=== PATIENT | female | born 1940 | race African-American/Black ===

== ENCOUNTER → 2020-11-03 | Outpatient (CLI) ==
[~2020-11-03] MED LIST: ACET-2267 PO; AMLO-251 PO; ATOR40TA70 PO; DOCU-143 PO; FAMO20TA3 PO; INSU100I23 SQ; METF-399 PO; METO-333 PO; MOM10U PO; OMEP40CA27 PO; ONDA4TAB11 PO; SERT-413 PO; TRAM50TA3 PO
[2020-11-03 22:59] LABS: CLARITY,URINE SL CLOUDY; COLOR,URINE YELLOW; GLUCOSE, URINE (UA) NEGATIVE (NEGATIVE); KETONES,URINE TRACE (NEGATIVE); LEUKOCYTE ESTERASE ,URINE 1+ (NEGATIVE); NITRITE,URINE NEGATIVE (NEGATIVE); PH,URINE 5.5 (5-9); PROTEIN,URINE 1+ (NEGATIVE)
[2020-11-03 23:10] LABS: BACTERIA,URINE LARGE /HPF; BILIRUBIN,URINE 1+ (NEGATIVE)
== END ==
LOC: EDBD → LABNPT 22:50
PROVIDERS: ATTEND Nurse Practitioner Family
DX: R33.9 Retention of urine, unspecified (principal)
CPT/HCPCS: 81000; 87088

== ENCOUNTER 2020-11-06 19:29 | Inpatient (IN) | payer MEDICARE ==
[~2020-11-06] VITALS: Ht 160 cm; Wt 81.5 kg
--- NOTE | 2020-11-06 19:44 | ED General ---
General Chief Complaint: General Problems/Pain Stated Complaint: PE Source of Information: Caregiver, Mcc Records History of Present Illness Date Seen by Provider: Nov 06, 2020 Time Seen by Provider: 19:44 Initial Comments This is a 80-year-old female who [facility] for concerns of pulmonary embolism. She had outpatient orders for CT abdomen/pelvis which showed concerning symptoms for possible pulmonary embolism. She was brought back over from the [facility] for a CTA of her chest which revealed PE. Patient is nonverbal at this time and unable to obtain HPI. Called [facility] and RN states that patient has been having decreased appetite, nausea and vomiting. Allergies and Home Medications Allergies Coded Allergies: No Allergy Information Available (Unverified , 11/06/20) Home Medications Acetaminophen 500 Mg Tablet, 500 MG PO Q6H PRN for PAIN-MILD (1-4), (Reported) Last Action: Held Amlodipine Besylate 10 Mg Tablet, 10 MG PO DAILY, (Reported) HOLD IF BP LESS THAN 100/60 OR HR LESS THEN 60 Last Action: Continued Atorvastatin Calcium 40 Mg Tablet, 40 MG PO HS, (Reported) Last Action: Continued Docusate Sodium 100 Mg Capsule, 100 MG PO BID, (Reported) Last Action: Continued Famotidine 20 Mg Tablet, 20 MG PO HS, (Reported) Last Action: Continued Insulin Lispro 100 Unit/1 Ml Insuln.pen, UNIT SQ AC, (Reported) 0-139= CALL PHYSICIAN 140-175=1 UNIT 176-200=2 UNITS 201-250=3 UNITS 251- 299=4 UNITS 300-400=7 UNITS CALL PHYSICIAN IF OVER 400 Last Action: Reviewed Magnesium Hydroxide 2,400 Mg/10 Ml Oral.susp, 30 ML PO DAILY PRN for CONSTIPATION-7TH LINE, (Reported) GIVE IF NO BM IN 48 HOURS Last Action: Converted Metformin HCl 1,000 Mg Tablet, 1,000 MG PO BID, (Reported) Last Action: Held Metoprolol Tartrate 25 Mg Tablet, 25 MG PO BID, (Reported) HOLD IF BP LESS THAN 100/60 OR HR LESS THAN 60 Last Action: Continued Omeprazole 40 Mg Capsule.dr, 40 MG PO DAILY, (Reported) Last Action: Converted Ondansetron 4 Mg Tab.rapdis, 4 MG PO Q4H PRN for CONSTIPATION-1ST LINE, (Reported) Last Action: Held Sertraline HCl 50 Mg Tablet, 50 MG PO DAILY, (Reported) Last Action: Continued Tramadol HCl 50 Mg Tablet, 50 MG PO Q6H PRN for PAIN-MODERATE (5-7), (Reported) Last Action: Continued Patient Home Medication List Home Medication List Reviewed: Yes Review of Systems Review of Systems Constitutional: see HPI EENTM: see HPI Respiratory: see HPI Cardiovascular: see HPI Gastrointestinal: no symptoms reported Genitourinary: see HPI Musculoskeletal: see HPI Skin: see HPI Psychiatric/Neurological: See HPI Hematologic/Lymphatic: See HPI Immunological/Allergic: see HPI Physical Exam Vital Signs Vital Signs - First Documented 11/06/20 19:30 Pulse 90 Resp 16 B/P (MAP) 143/101 (115) O2 Delivery Room Air Capillary Refill : Height, Weight, BMI Height: '" Weight: lbs. oz. kg; BMI Method: General Appearance: No Apparent Distress, WD/WN Eyes: Bilateral Eye Normal Inspection, Bilateral Eye EOMI HEENT: PERRL/EOMI, Normal ENT Inspection Neck: Full Range of Motion, Normal Inspection Respiratory: Normal Breath Sounds, No Accessory Muscle Use, No Respiratory Distress, Rales (bilateral bases) Cardiovascular: Regular Rate, Rhythm, No Edema, No Gallop, Normal Peripheral Pulses Gastrointestinal: Normal Bowel Sounds, Non Tender, Soft Genital/Rectal: Other (delgado catheter ) Extremity: Normal Inspection, Non Tender Neurologic/Psychiatric: Alert, Oriented x3, No Motor/Sensory Deficits, Other (unresponsive ) Skin: Normal Color, Warm/Dry Progress/Results/Core Measures Suspected Sepsis SIRS Temperature: Pulse: Respiratory Rate: Laboratory Tests 11/06/20 19:45: White Blood Count 10.3 Blood Pressure / Mean: Laboratory Tests 11/06/20 19:45: Creatinine 1.22, INR Comment 1.7H, Platelet Count 378, Total Bilirubin 0.5 Results/Orders Lab Results Laboratory Tests Test 11/06/20 19:45 11/06/20 20:09 Range/Units White Blood Count 10.3 4.3-11.0 10^3/uL Red Blood Count 4.14 3.80-5.11 10^6/uL Hemoglobin 12.5 11.5-16.0 g/dL Hematocrit 38 35-52 % Mean Corpuscular Volume 93 80-99 fL Mean Corpuscular Hemoglobin 30 25-34 pg Mean Corpuscular Hemoglobin Concent 33 32-36 g/dL Red Cell Distribution Width 14.6 H 10.0-14.5 % Platelet Count 378 130-400 10^3/uL Mean Platelet Volume 8.9 L 9.0-12.2 fL Immature Granulocyte % (Auto) 1 % Neutrophils (%) (Auto) 77 H 42-75 % Lymphocytes (%) (Auto) 13 12-44 % Monocytes (%) (Auto) 8 0-12 % Eosinophils (%) (Auto) 0 0-10 % Basophils (%) (Auto) 1 0-10 % Neutrophils # (Auto) 8.0 H 1.8-7.8 10^3/uL Lymphocytes # (Auto) 1.4 1.0-4.0 10^3/uL Monocytes # (Auto) 0.8 0.0-1.0 10^3/uL Eosinophils # (Auto) 0.0 0.0-0.3 10^3/uL Basophils # (Auto) 0.1 0.0-0.1 10^3/uL Immature Granulocyte # (Auto) 0.1 0.0-0.1 10^3/uL Prothrombin Time 20.2 H 12.2-14.7 SEC INR Comment 1.7 H 0.8-1.4 Activated Partial Thromboplast Time 41 H 24-35 SEC Sodium Level 134 L 135-145 MMOL/L Potassium Level 4.1 3.6-5.0 MMOL/L Chloride Level 100 98-107 MMOL/L Carbon Dioxide Level 20 L 21-32 MMOL/L Anion Gap 14 5-14 MMOL/L Blood Urea Nitrogen 27 H 7-18 MG/DL Creatinine 1.22 0.60-1.30 MG/DL Estimat Glomerular Filtration Rate 52 BUN/Creatinine Ratio 22 Glucose Level 181 H 70-105 MG/DL Calcium Level 10.1 8.5-10.1 MG/DL Corrected Calcium 10.7 H 8.5-10.1 MG/DL Total Bilirubin 0.5 0.1-1.0 MG/DL Aspartate Amino Transf (AST/SGOT) 22 5-34 U/L Alanine Aminotransferase (ALT/SGPT) 16 0-55 U/L Alkaline Phosphatase 72 40-136 U/L Troponin I 0.033 H <0.028 NG/ML Total Protein 9.0 H 6.4-8.2 GM/DL Albumin 3.3 3.2-4.5 GM/DL Urine Color YELLOW Urine Clarity CLEAR Urine pH 5.5 5-9 Urine Specific [place] 1.015 L 1.016-1.022 Urine Protein 1+ H NEGATIVE Urine Glucose (UA) NEGATIVE NEGATIVE Urine Ketones NEGATIVE NEGATIVE Urine Nitrite NEGATIVE NEGATIVE Urine Bilirubin NEGATIVE NEGATIVE Urine Urobilinogen 0.2 < = 1.0 MG/DL Urine Leukocyte Esterase 1+ H NEGATIVE Urine RBC (Auto) 2+ H NEGATIVE Urine RBC 5-10 H /HPF Urine WBC 10-25 H /HPF Urine Squamous Epithelial Cells 2-5 /HPF Urine Crystals NONE /LPF Urine Bacteria LARGE H /HPF Urine Casts PRESENT /LPF Urine Hyaline Casts 0-2 H /LPF Urine Mucus SMALL H /LPF Urine Yeast MODERATE H /HPF Urine Culture Indicated YES Micro Results Microbiology 11/06/20 Urine Culture - Preliminary, Resulted Gram Negative Sabas My Orders Orders - VIVIAN MURPHY SPECIMEN COLLECTOR Cbc With Automated Diff (11/06/20 19:42) Comprehensive Metabolic Panel (11/06/20 19:42) Protime With Inr (11/06/20 19:42) Ua Culture If Indicated (11/06/20 19:42) Ns Iv 500 Ml (Sodium Chloride 0.9%) (11/06/20 19:45) Ondansetron Injection (Zofran Injectio (11/06/20 19:45) Partial Thromboplastin Time (11/06/20 19:45) Ekg Tracing (11/06/20 20:01) Monitor-Rhythm Ecg Trace Only (11/06/20 20:01) Ed Iv/Invasive Line Start (11/06/20 20:01) Troponin I (11/06/20 20:01) Medications Given in ED Vital Signs/I&O 11/06/20 19:30 Pulse 90 Resp 16 B/P (MAP) 143/101 (115) O2 Delivery Room Air 11/07/20 00:00 Intake Total 500 ml Balance 500 ml Capillary Refill : Progress Note : Progress Note Upon arrival patient appears to not be able to answer questions and she is actively vomiting. Given Zofran 4mg IVP. CT ang chest reviewed which does reveal PE. Orders placed to initiate full heparin therapy. Given NS 500ml bolus as she received two doses of IV contrast today. Reviewed case with Dr. Hannah, accepted patient admission to medical unit. After nausea/vomiting under control she was able to answer simple questions. Oriented to person only. Plan: Admit to medical unit for pulmonary embolism. -Full heparin therapy -NS 100ml/hr continuously -Zofran 4mg IVP q6 hours PRN -Phenergan 25mg IVP q6 hours PRN -Fentanyl 50mcg IVP q2 hours PRN pain -Pantoprazole 40mg IVP q24 hours -Tylenol 650mg PO q6 hours PRN fever/pain DNR ECG Initial ECG Impression Date: Nov 06, 2020 Initial ECG Impression Time: 20:12 Initial ECG Rate: 78 Initial ECG Rhythm: Normal Sinus Initial ECG Intervals: Normal Initial ECG Impression: Nonspecific Changes Diagnostic Imaging Diagonstic Imaging: CT Plain Films/CT/US/NM/MRI: chest Comments [facility], [place] NAME: TABITHA RUTH [employer] REC#: [id number] PT STATUS: REG CLI : 1940 PHYSICIAN: CHAPIS SNELL ADMIT DATE: 11/06/20/RAD Signed Date of Exam:11/06/20 CT ANGIO CHEST W PROCEDURE: CT angiography of the chest with contrast. TECHNIQUE: Multiple contiguous axial images were obtained through the chest after uneventful bolus administration of intravenous contrast. 3D reconstructed CTA MIP acquisitions were also performed. Auto Exposure Controls were utilized during the CT exam to meet ALARA standards for radiation dose reduction. INDICATION: 80-year-old female with shortness of breath, left lower lobe infiltrate on CT abdomen and pelvis. COMPARISONS: CT abdomen and pelvis 11/06/2020 FINDINGS: There is no axillary adenopathy. There is also no hilar or mediastinal adenopathy. Cardiac contour is normal. The thoracic aortic contour is also normal with no evidence of aneurysm or dissection. The pulmonary outflow tract is prominent. The right and left pulmonary arteries are patent. There is thrombus seen extending into the right lower lobe pulmonary artery. Nonocclusive thrombus is also seen in the left lower lobe pulmonary artery. Lungs show COPD. There is a right lower lobe consolidation with a sliver right effusion. IMPRESSION: 1. Findings are consistent with pulmonary embolism with intraluminal thrombus seen in the right lower lobe pulmonary artery and nonocclusive thrombus in the left lower lobe pulmonary artery. 2. Prominent main pulmonary arteries may be a sequela of pulmonary arterial hypertension. 3. Right lower lobe consolidation. 4. Prominent coronary calcifications noted. 5. Additional nonemergent findings as described above. Message left on cell phone of Kizzy Isbell APRN at 7:43 PM 11/06/2020/cb Dr. Shrestha contacted Kizzy Isbell APRN, at the time of dictation. Dictated by: Dictated on workstation # [id number] Dict: 11/06/20 1916 Trans: 11/07/205 [facility] [id number] Interpreted by: BRIANA SHRESTHA MD Electronically signed by: BRIANA SHRESTHA MD 11/07/20 0445 Reviewed: Reviewed by Tn Diagonstic Imaging: CT Comments [facility], [place] NAME: TABITHA RUTH [employer] REC#: [id number] PT STATUS: REG CLI : 1940 PHYSICIAN: KIZZY ISBELL APRN ADMIT DATE: 11/06/20/RAD Signed Date of Exam:11/06/20 CT ABDOMEN/PELVIS W PROCEDURE: CT abdomen and pelvis with contrast. TECHNIQUE: Multiple contiguous axial images were obtained through the abdomen and pelvis after administration of intravenous contrast. Auto Exposure Controls were utilized during the CT exam to meet ALARA standards for radiation dose reduction. All CT scans use one or more of the following dose optimizing techniques: automated exposure control, MA and/or KvP adjustment based on patient size and exam type or iterative reconstruction. INDICATION: Abdominal pain. Nausea. Vomiting. Weight loss. COMPARISON: None FINDINGS: Included portions of the lung bases show small right basal effusion with focal and patchy airspace densities within the right lower lobe. Overall appearance may be on the basis of pneumonia. Pulmonary infarct may have a similar appearance. CT ABDOMEN: Normal appendix cannot be adequately identified, but there is no pericecal inflammation. Small bowel loops are nondistended. Benign cyst is identified involving the inferior pole of the left kidney. Several other subcentimeter hypoenhancing spherical foci are also noted and may be on the basis of small cysts as well, but are too small to adequately characterize based on this exam. No suspicious enhancing renal lesions are seen. The adrenal glands, spleen, pancreas, and liver have normal CT appearance. There is no loculated fluid collection, free fluid or free air within the abdomen. No abnormal mesenteric or retroperitoneal adenopathy is seen. Osseous structures show no acute abnormalities. CT PELVIS: Delgado catheter is present within the urinary bladder. Urinary bladder is decompressed. There is no loculated fluid collection, free fluid or free air within the pelvis. No abnormal adenopathy is seen. Osseous structures show no acute abnormalities. IMPRESSION: 1. No acute abnormalities are seen within the abdomen or pelvis. 2. Left benign renal cysts and additional smaller hypoenhancing renal foci, which again may be on the basis of renal cysts, but are too small to adequately characterize based on this exam. 3. Small right basilar effusion with probable infiltrate/pneumonia in the right lower lobe. Pulmonary infarct may have a similar appearance. If there is concern for pulmonary emboli, CTA of the chest is recommended. Report given to Kizzy Isbell APRN, at 5:06 PM 11/06/2020/tatianna Dictated by: Dictated on workstation # [id number] Dict: 11/06/20 1625 Trans: 11/07/20 0815 [facility] [id number] Interpreted by: CATHERINE QUINTEROS MD Electronically signed by: CATHERINE QUINTEROS MD 11/07/2015 Reviewed: Reviewed by Me Departure Communication (Admissions) Time/Spoke to Admitting Phy: 20:[address] Hannah, accepted patient admission. Impression Primary Impression: Pulmonary embolism Additional Impressions: Nausea & vomiting Poor appetite Disposition: ADMITTED INPATIENT Condition: Stable Admissions Decision to Admit Reason: Admit from ER (General) Decision to Admit/Date: Nov 06, 2020 Time/Decision to Admit Time: 20:15 Departure-Patient Inst. Referrals: KAYLEY KOWALSKI MD (PCP/Family) Primary Care Physician VIVIAN MURPHY SPECIMEN COLLECTOR Nov 06, 2020 19:44
[2020-11-06] MEDS ORDERED: ONDANSETRON 4 MG/2 ML (SDV) Z0FRAN IVP ONE (19:45)
[2020-11-06] MEDS ORDERED: NS IV 500 ML 500 ML IV ONE (19:45)
[2020-11-06 19:52] LABS: BASOPHILS # (AUTO) 0.1 10^3/uL (0.0-0.1); BASOPHILS % (AUTO) 1 % (0-10); EOSINOPHILS % (AUTO) 0 % (0-10); HEMATOCRIT 38 % (35-52); HEMOGLOBIN 12.5 g/dL (11.5-16.0); LYMPHOCYTES # (AUTO) 1.4 10^3/uL (1.0-4.0); LYMPHOCYTES % (AUTO) 13 % (12-44); MEAN CORPUSCULAR HEMOGLOBIN 30 pg (25-34); MEAN CORPUSCULAR HGB CONC 33 g/dL (32-36); MEAN CORPUSCULAR VOLUME 93 fL (80-99); MEAN PLATELET VOLUME 8.9 fL (9.0-12.2); MONOCYTES # (AUTO) 0.8 10^3/uL (0.0-1.0); MONOCYTES % (AUTO) 8 % (0-12); NEUTROPHILS % (AUTO) 77 % (42-75); PLATELET COUNT 378 10^3/uL (130-400); WHITE BLOOD COUNT 10.3 10^3/uL (4.3-11.0)
[2020-11-06] MEDS ORDERED: HEParin DRIP 25000 UNIT/500ML 500 ML IV SCH (20:00)
[2020-11-06] MEDS ORDERED: HEParin 1000 UNIT/ML (10ML VIAL) FOR BOLUS IV SCH ×3 (20:00)
[2020-11-06 20:04] LABS: INR 1.7 (0.8-1.4); PROTHROMBIN TIME PATIENT 20.2 SEC (12.2-14.7)
[2020-11-06 20:11] LABS: ALBUMIN 3.3 GM/DL (3.2-4.5); BILIRUBIN,TOTAL 0.5 MG/DL (0.1-1.0); CALCIUM 10.1 MG/DL (8.5-10.1); CREATININE SERUM 1.22 MG/DL (0.60-1.30); POTASSIUM 4.1 MMOL/L (3.6-5.0)
[2020-11-06] MEDS ORDERED: HEParin DRIP 25000 UNIT/500ML 500 ML IV ONE (20:13)
[2020-11-06 20:19] LABS: BILIRUBIN,URINE NEGATIVE (NEGATIVE); CLARITY,URINE CLEAR; COLOR,URINE YELLOW; GLUCOSE, URINE (UA) NEGATIVE (NEGATIVE); KETONES,URINE NEGATIVE (NEGATIVE); LEUKOCYTE ESTERASE ,URINE 1+ (NEGATIVE); NITRITE,URINE NEGATIVE (NEGATIVE); PH,URINE 5.5 (5-9); PROTEIN,URINE 1+ (NEGATIVE)
[2020-11-06 20:33] LABS: BACTERIA,URINE LARGE /HPF; HYALINE CASTS, URINE 0-2 /LPF
[2020-11-06 20:34] LABS: YEAST,URINE MODERATE /HPF
[2020-11-06 21:15] VITALS: BP 167/72
[2020-11-06] MEDS ORDERED: PROMETHAZINE INJ 25 MG/ML (PHENERGAN) AMP IVP PRN (21:45)
[2020-11-06] MEDS ORDERED: ACETAMINOPHEN 650 MG SUPP (TYLENOL) PR PRN (21:45)
[2020-11-06] MEDS ORDERED: ACETAMINOPHEN 325 MG TABLET PO PRN (21:45)
[2020-11-06] MEDS ORDERED: ONDANSETRON 4 MG/2 ML (SDV) Z0FRAN IV PRN (21:45)
[2020-11-06] MEDS: NS IV 1000 ML 1,000 ML IV SCH (22:05)
[2020-11-06 23:03] VITALS: BP 134/57
[2020-11-06] MEDS ORDERED: RT-ALBUTEROL/IPRATROPIUM 3 ML (DUONEB) VIAL INH PRN (23:30)
[2020-11-06 23:35] VITALS: BP 160/79
[2020-11-07 04:05] VITALS: BP 154/77
[2020-11-07 06:59] LABS: BASOPHILS # (AUTO) 0.1 10^3/uL (0.0-0.1); BASOPHILS % (AUTO) 1 % (0-10); EOSINOPHILS # (AUTO) 0.1 10^3/uL (0.0-0.3); EOSINOPHILS % (AUTO) 1 % (0-10); HEMATOCRIT 35 % (35-52); LYMPHOCYTES # (AUTO) 2.1 10^3/uL (1.0-4.0); LYMPHOCYTES % (AUTO) 21 % (12-44); MEAN CORPUSCULAR HEMOGLOBIN 30 pg (25-34); MEAN CORPUSCULAR HGB CONC 32 g/dL (32-36); MEAN CORPUSCULAR VOLUME 95 fL (80-99); MEAN PLATELET VOLUME 9.2 fL (9.0-12.2); MONOCYTES # (AUTO) 0.9 10^3/uL (0.0-1.0); MONOCYTES % (AUTO) 9 % (0-12); NEUTROPHILS # (AUTO) 6.7 10^3/uL (1.8-7.8); NEUTROPHILS % (AUTO) 68 % (42-75); PLATELET COUNT 375 10^3/uL (130-400); WHITE BLOOD COUNT 9.9 10^3/uL (4.3-11.0)
[2020-11-07 07:21] LABS: POTASSIUM 3.9 MMOL/L (3.6-5.0)
[2020-11-07 07:22] LABS: CALCIUM 9.5 MG/DL (8.5-10.1)
[2020-11-07 07:26] LABS: CREATININE SERUM 1.27 MG/DL (0.60-1.30)
[2020-11-07 08:00] VITALS: BP 152/75
[2020-11-07] MEDS: NS IV 1000 ML 1,000 ML IV SCH ×2 (08:31→18:41)
[2020-11-07] MEDS ORDERED: PANTOPRAZOLE 40 MG (PROTONIX) VIAL IV SCH (09:00)
[2020-11-07] MEDS ORDERED: ATOR40TA70 PO (10:42)
[2020-11-07] MEDS ORDERED: AMLO-251 PO (10:44)
[2020-11-07] MEDS ORDERED: FAMO20TA3 PO (10:44)
[2020-11-07] MEDS ORDERED: OMEP40CA27 PO (10:44)
[2020-11-07] MEDS ORDERED: SERT-413 PO (10:44)
[2020-11-07] MEDS ORDERED: DOCU-143 PO (10:44)
[2020-11-07] MEDS: fentaNYL INJ 100 MCG/2 ML AMP IV PRN ×3 (10:56→18:16)
[2020-11-07] MEDS ORDERED: METO-333 PO (10:57)
[2020-11-07] MEDS ORDERED: INSU100I23 SQ (10:57)
[2020-11-07] MEDS ORDERED: METF-399 PO (10:57)
[2020-11-07] MEDS ORDERED: MOM10U PO (11:04)
[2020-11-07] MEDS ORDERED: ONDA4TAB11 PO (11:04)
[2020-11-07] MEDS ORDERED: TRAM50TA3 PO (11:04)
[2020-11-07] MEDS ORDERED: ACET-2267 PO (11:04)
--- NOTE | 2020-11-07 11:10 | History & Physical-Hospitalist ---
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 She is unable to provide me much history due to her aphasia. I called and spoke with her daughter and her PCP Kizzy Isbell NP. Daughter reports she had a stroke back in September and was lifeflighted to [place] for possible thrombectomy but ultimately did not end up getting that done due to location of the clot. She has since has residual right sided weakness and aphasia since then. RACHNA Isbell then told me that she has been feeling well for a few weeks and has lost about 20lbs. She has not been eating or drinking much and has has nausea and possibly some v omiting. She was treated recently for a UTI with Bactrim for e coli but has continued to not feel well and repeat UA in the ER was consistent with UTI. I did confirm that previous e coli was sensitivie to cephalosporins. Source: family Exam Limitations: other Date Seen 11/07/20 Time Seen by a Provider: 11:03 Attending Physician Sami Hannah MD PCP Lukasz Coughlin MD Referring Physician Date of Admission Nov 06, 2020 at 20:20 Home Medications & Allergies Home Medications Reviewed patient Home Medication Reconciliation performed by pharmacy medication reconciliations health care technician and/or nursing. Patients Allergies have been reviewed. Allergies Allergies Coded Allergies No Allergy Information Available (Unverified11/06/20) Past Cnizhrb-Ymyvqx-Wbxpoz Hx Patient Social History Employed/Student: retired Smoking Status: Never a Smoker Pt feels they are or have been: Unable to obtain Immunizations Up To Date Tetanus Booster (TDap): Unknown Current Status status: No status: No Advance Directives: Yes Advance Directive Location: Copy placed in chart Communicates: Unable To Communicate Primary Language: Icelandic Preferred Spoken Language: Icelandic Is interpretation needed?: No Sensory deficits: Speech impairment Past Medical History Surgeries: Cardiac High Cholesterol, Hypertension Stroke UTI-Chronic Gastroesophageal Reflux, Chronic Constipation, Esophagitis Diabetes, Insulin dep Depression Family Medical History Reviewed Nursing Family Hx No Pertinent Family Hx Review of Systems Constitutional: see HPI Physical Exam Physical Exam Vital Signs Vital Signs - First Documented 11/06/20 11/06/20 11/06/20 11/06/20 19:30 20:46 21:15 23:03 Temp 36.7 Pulse 90 Resp 16 B/P (MAP) 143/101 (115) Pulse Ox 100 O2 Delivery Room Air FiO2 21 Capillary Refill : Less Than 3 Seconds Height, Weight, BMI Height: '" Weight: lbs. oz. kg; 31.83 BMI Method: General Appearance: No Apparent Distress, Chronically ill Neck: Normal Inspection, Supple Respiratory: Lungs Clear, No Accessory Muscle Use, No Respiratory Distress Cardiovascular: Regular Rate, Rhythm, No JVD, Normal Peripheral Pulses Gastrointestinal: Normal Bowel Sounds, Non Tender, Soft Neurologic/Psychiatric: Alert, Oriented x3, Normal Mood/Affect Skin: Normal Color, Warm/Dry Results Results/Procedures Labs Laboratory Tests 11/06/20 19:45 11/07/20 06:51 Patient resulted labs reviewed. Imaging: Reviewed Imaging Report [email or web address] [place] [place] NAME: TABITHA RUTH [email or web address] REC#: [id number] PT STATUS: REG CLI : 1940 PHYSICIAN: CHAPIS SNELL ADMIT DATE: 11/06/20/RAD Signed Date of Exam:11/06/20 CT ANGIO CHEST W PROCEDURE: CT angiography of the chest with contrast. TECHNIQUE: Multiple contiguous axial images were obtained through the chest after uneventful bolus administration of intravenous contrast. 3D reconstructed CTA MIP acquisitions were also performed. Auto Exposure Controls were utilized during the CT exam to meet ALARA standards for radiation dose reduction. INDICATION: 80-year-old female with shortness of breath, left lower lobe infiltrate on CT abdomen and pelvis. COMPARISONS: CT abdomen and pelvis 11/06/2020 FINDINGS: There is no axillary adenopathy. There is also no hilar or mediastinal adenopathy. Cardiac contour is normal. The thoracic aortic contour is also normal with no evidence of aneurysm or dissection. The pulmonary outflow tract is prominent. The right and left pulmonary arteries are patent. There is thrombus seen extending into the right lower lobe pulmonary artery. Nonocclusive thrombus is also seen in the left lower lobe pulmonary artery. Lungs show COPD. There is a right lower lobe consolidation with a sliver right effusion. IMPRESSION: 1. Findings are consistent with pulmonary embolism with intraluminal thrombus seen in the right lower lobe pulmonary artery and nonocclusive thrombus in the left lower lobe pulmonary artery. 2. Prominent main pulmonary arteries may be a sequela of pulmonary arterial hypertension. 3. Right lower lobe consolidation. 4. Prominent coronary calcifications noted. 5. Additional nonemergent findings as described above. Message left on cell phone of Kizzy Isbell APRN at 7:43 PM 11/06/2020/cb Dr. Shrestha contacted Kizzy Isbell APRN, at the time of dictation. Dictated by: Dictated on workstation # [id number] Dict: 11/06/201915 Trans: 11/07/20444 [facility] [id number] Interpreted by: BRIANA SHRESTHA MD Electronically signed by: BRIANA SHRESTHA MD 11/07/205 [facility] [place], [place] NAME: TABITHA RUTH [facility] REC#: [id number] PT STATUS: REG CLI : 1940 PHYSICIAN: KIZZY ISBELL APRN ADMIT DATE: 11/06/20/RAD Signed Date of Exam:11/06/20 CT ABDOMEN/PELVIS W PROCEDURE: CT abdomen and pelvis with contrast. TECHNIQUE: Multiple contiguous axial images were obtained through the abdomen and pelvis after administration of intravenous contrast. Auto Exposure Controls were utilized during the CT exam to meet ALARA standards for radiation dose reduction. All CT scans use one or more of the following dose optimizing techniques: automated exposure control, MA and/or KvP adjustment based on patient size and exam type or iterative reconstruction. INDICATION: Abdominal pain. Nausea. Vomiting. Weight loss. COMPARISON: None FINDINGS: Included portions of the lung bases show small right basal effusion with focal and patchy airspace densities within the right lower lobe. Overall appearance may be on the basis of pneumonia. Pulmonary infarct may have a similar appearance. CT ABDOMEN: Normal appendix cannot be adequately identified, but there is no pericecal inflammation. Small bowel loops are nondistended. Benign cyst is identified involving the inferior pole of the left kidney. Several other subcentimeter hypoenhancing spherical foci are also noted and may be on the basis of small cysts as well, but are too small to adequately characterize based on this exam. No suspicious enhancing renal lesions are seen. The adrenal glands, spleen, pancreas, and liver have normal CT appearance. There is no loculated fluid collection, free fluid or free air within the abdomen. No abnormal mesenteric or retroperitoneal adenopathy is seen. Osseous structures show no acute abnormalities. CT PELVIS: Connor catheter is present within the urinary bladder. Urinary bladder is decompressed. There is no loculated fluid collection, free fluid or free air within the pelvis. No abnormal adenopathy is seen. Osseous structures show no acute abnormalities. IMPRESSION: 1. No acute abnormalities are seen within the abdomen or pelvis. 2. Left benign renal cysts and additional smaller hypoenhancing renal foci, which again may be on the basis of renal cysts, but are too small to adequately characterize based on this exam. 3. Small right basilar effusion with probable infiltrate/pneumonia in the right lower lobe. Pulmonary infarct may have a similar appearance. If there is concern for pulmonary emboli, CTA of the chest is recommended. Report given to Kizzy Isbell APRN, at 5:06 PM 11/06/2020/tatianna Dictated by: Dictated on workstation # [id number] Dict: 11/06/20 1625 Trans: 11/07/20 0815 [facility] [id number] Interpreted by: CATHERINE QUINTEROS MD Electronically signed by: CATHERINE QUINTEROS MD 11/07/20 0815 Assessment/Plan Admission Diagnosis Bilateral PE Admission Status: Inpatient Order (span 2 midnights) Reason for Inpatient Admission: see below Assessment and Plan Bilateral PE Compensating well transition from herpain gtt to Lovenox due to nausea Hopeful can transition to Eliquis if nausea improved soon BP and HR good, satting 100 on RA this morning Recurrent UTI Await C&S Start on Rocephin Expressive Aphasia CVA with residual deficits- right sided PT/OT/Speech Continue home meds IDDMII Fasting blood sugar this AM was 139 SSI HTN BP well controlled DVT ppx; anticoagulation as above Diagnosis/Problems Diagnosis/Problems (1) Essential (primary) hypertension Status: Chronic (2) Obesity Status: Chronic Qualifiers: Obesity type: unspecified obesity type Obesity classification: adult class 1 (BMI 30 - 34.9) Serious obesity comorbidity presence: without serious comorbidity Body mass index: BMI 31.0-31.9 Qualified Codes: E66.9 - Obesity, unspecified; Z68.31 - Body mass index [BMI] 31.0-31.9, adult (3) NSTEMI (non-ST elevated myocardial infarction) Status: Acute (4) Insulin dependent diabetes mellitus Status: Chronic (5) Prophylactic measure Status: Acute (6) UTI (urinary tract infection) Status: Acute Qualifiers: Urinary tract infection type: acute cystitis Hematuria presence: with hematuria Qualified Codes: N30.01 - Acute cystitis with hematuria (7) CVA, old, aphasia Status: Chronic (8) CVA, old, hemiparesis Status: Chronic (9) Pulmonary embolism Status: Acute Qualifiers: Pulmonary embolism type: multiple subsegmental (without acute cor pulmonale) Qualified Codes: I26.94 - Multiple subsegmental pulmonary emboli without acute cor pulmonale (10) Nausea & vomiting Status: Acute Qualifiers: Vomiting Intractability: intractable SANDY BRANDON MD Nov 07, 2020 11:10
[2020-11-07] MEDS ORDERED: cefTRIAXone 1,000 MG in WATER (STERILE) FOR INJECTION 10 ML IV NR (11:15)
[2020-11-07 11:46] VITALS: BP 145/73
[2020-11-07] MEDS: ENOXAPARIN 80 MG/0.8 ML (LOVENOX) SYR SC SCH (12:36)
[2020-11-07] MEDS ORDERED: MILK OF MAGNESIA 400 MG/5 ML 30 ML UDC PO PRN (12:45)
--- NOTE | 2020-11-07 15:07 | Physical Therapy Evaluation ---
PT Evaluation-General Medical Diagnosis Admission Date Nov 06, 2020 at 20:20 Medical Diagnosis: pulmonary embolism Onset Date: Nov 06, 2020 Therapy Diagnosis Therapy Diagnosis: impaired mobility, strength, endurance Precautions Precautions/Isolations: Fall Prevention, Standard Precautions Referral Physician: [place] Reason for Referral: Evaluation/Treatment Medical History Additional Medical History Past Medical History Surgeries: Cardiac High Cholesterol, Hypertension Stroke UTI-Chronic Gastroesophageal Reflux, Chronic Constipation, Esophagitis Diabetes, Insulin dep Depression Reviewed History: Yes Social History Home: [facility] Prior Prior Level of Function SCALE: Activities may be completed with or without assistive devices. 1-Hmgfgfnjxz-cpdntcq completes the activity by him/herself with no assistance from a helper. 5-Set-up or Clean-up Assistance-helper sets up or cleans up; patient completes activity. [place] assists only prior to or following the activity. 4-Supervision or Touching Assistance-helper provides verbal cues and/or touching/steadying and/or contact guard assistance as patient completes activity. Assistance may be provided throughout the activity or intermittently. 3-Partial/Moderate Assistance-helper does LESS THAN HALF the effort. [place] lifts, holds or supports trunk or limbs, but provides less than half the effort. 2-Substantial/Maximal Assistance-helper does MORE THAN HALF the effort. [place] lifts or holds trunk or limbs and provides more than half the effort. 9-Llpfhepdc-ozwyxd does ALL the effort. Patient does none of the effort to complete the activity. Or, the assistance of 2 or more helpers is required for the patient to complete the activity. If activity was not attempted, code reason: 7-Patient Refused. 9-Not Applicable-not attempted and the patient did not perform the activity before the current illness, exacerbation or injury. 10-Not Attempted due to Environmental Limitations-(lack of equipment, weather restraints, etc.). 88-Not Attempted due to Medical Conditions or Safety Concerns. unknown PT Evaluation-Current Subjective Patient in bed pre tx, agrees to PT by nodding her head, she doesn't seem to be able to talk Pt/Family Goals none stated Objective Patient Orientation: Person, Unable to Assess, Non-Verbal/Aphasic ROM/Strength ROM Lower Extremities generally limited due to BLE swelling Strength Lower Extremities unable to assess Transfers Roll Left to Right (QC): 1 Sit to Lying (QC): 1 Lying to Sitting/Side of Bed(Q: 1 Dependent assist of 2 for supine to sit, patient was able to sit for about 5 min before needing to lay back down, dependent of 2 to lay down. Patient leans to the right side when sitting. Patient is dependent for scooting after laying back down. Balance Sitting Static: Poor Sitting Dynamic: Poor Assessment/Needs Patient in bed post tx with nurse call, phone, tray, all needs met. Patient has impaired mobility, strength, endurance. Patient is dependent for all mobility. Rehab Potential: Poor PT Mcfp Goals Commercial Art Instructor Goals PT Mcfp Goals Time Frame: Nov 14, 2020 Roll Left & Right (QC): 2 Sit to Lying (QC): 2 Lying-Sitting on Side/Bed(QC): 2 PT Plan Problem List Problem List: Activity Tolerance, Functional Strength, Safety, Balance, Gait, Transfer, Bed Mobility, ROM Treatment/Plan Treatment Plan: Continue Plan of Care Treatment Plan: Bed Mobility, Education, Functional Activity Araceli, Functional Strength, Safety, Therapeutic Exercise, Transfers Treatment Duration: Nov 14, 2020 Frequency: 6 times per week Estimated Hrs Per Day: .25 hour per day Patient and/or Family Agrees t: Yes Safety Risks/Education Patient Education: Correct Positioning, Safety Issues Teaching Recipient: Patient Teaching Methods: Demonstration, Discussion Response to Teaching: Reinforcement Needed Discharge Recommendations Plan Patient will perform bed mobility and transfer training, balance and endurance training, functional strengthening, and education, to improve functional mobility and independence at home. Therapy Discharge Recommendati: 24 Hour Supervision Time/GCodes Time In: 1442 Time Out: 1454 Total Billed Treatment Time: 12 Total Billed Treatment 1 visit ARNULFO HIDALGO PT Nov 07, 2020 15:07
--- NOTE | 2020-11-07 15:12 | Occupational Therapy Eval ---
OT Evaluation-General/PLF Medical Diagnosis Admission Date Nov 06, 2020 at 20:20 Medical Diagnosis: PE Onset Date: Nov 06, 2020 Therapy Diagnosis Therapy Diagnosis: weakness, decresed ADL status Precautions Precautions/Isolations: Fall Prevention, Standard Precautions Referral Physician: ALEKSANDR Referral Reason: Evaluation/Treatment Medical History Pertinent Medical History: CVA, DM, GERD, HTN Current History ED due to PE on CT scan Social History Home: [facility] ADL-Prior Level of Function SCALE: Activities may be completed with or without assistive devices. 6-Odgnepmcry-bhjkjad completes the activity by him/herself with no assistance from a helper. 5-Set-up or Clean-up Assistance-helper sets up or cleans up; patient completes activity. [place] assists only prior to or following the activity. 4-Supervision or Touching Assistance-helper provides verbal cues and/or touching/steadying and/or contact guard assistance as patient completes activity. Assistance may be provided throughout the activity or intermittently. 3-Partial/Moderate Assistance-helper does LESS THAN HALF the effort. [place] lifts, holds or supports trunk or limbs, but provides less than half the effort. 2-Substantial/Maximal Assistance-helper does MORE THAN HALF the effort. [place] lifts or holds trunk or limbs and provides more than half the effort. 8-Fineokvdy-djmvtd does ALL the effort. Patient does none of the effort to complete the activity. Or, the assistance of 2 or more helpers is required for the patient to complete the activity. If activity was not attempted, code reason: 7-Patient Refused. 9-Not Applicable-not attempted and the patient did not perform the activity before the current illness, exacerbation or injury. 10-Not Attempted due to Environmental Limitations-(lack of equipment, weather restraints, etc.). 88-Not Attempted due to Medical Conditions or Safety Concerns. ADL PLOF Comments Pt unable to provide information about PLOF, based on clinical judgment, pt required assistance with self care. Self Care: Needed Some Help Functional Cognition: Needed Some Help OT Current Status Subjective Pt laying in bed, nonverbal throughout tx but able to communicate and answer simple questions by nodding or shaking her head. Pt indicates she has pain, unable to locate or rate. Nurse aware. Mental Status/Objective Patient Orientation: Person, Non-Verbal/Aphasic Attachments: Connor Catheter, IV Current Upper Extremity ROM Impaired RUE function, OT performed gentle PROM all planes, pt grimaces with movements of R wrist and hand. LUE grossly WFL, although unable to follow commands to formally assess Upper Extremity Coordination decreased due to decreased motion RUE. OT asked pt to squeeze her hand/make fist with L hand, pt unable to follow command. Edema: slight edema noted RUE ADL-Treatment Eating (QC): 2 (Pt able to open mouth to take applesauce off of spoon provided by nurse, able to swallow. OT provided pt with cup, guiding straw to her lips, pt able to take drink.) Shower/Bathe Self (QC): 1 (based on clincial judgement) Lower Body Dressing (QC): 1 (based on clincial judgement) On/Off Footwear (QC): 1 (based on clincial judgement) Other Treatments Pt laying in bed, nodded head in agreement to OT. Pt nonverbal, unable to provide information about PLOF. OT performed gentle PROM RUE, pt grimaced with movements of wrist and hand. Pts nurse present, providing pt with meds through applesauce. Pt transferred supine to sit EOB, dependent assist x2. She sat EOB ~5 mins (leaning towards R side while sitting), then needed to lay back down, dependent assist x2. Dependent assist x2 to scoot towards HOB. Post tx, pt laying in bed, call light in reach and all needs met. Education OT Patient Education: Correct positioning, Modified ADL techniques, Progress toward Goal/Update tx plan, Purpose of tx/functional activities, Rehab process Teaching Recipient: Patient Teaching Methods: Discussion OT Fdc Goals Litigation Assistant Goals Time Frame: Nov 17, 2020 Eating (QC): 3 Oral Hygiene (QC): 3 Toileting Hygiene (QC): 2 Shower/Bathe Self (QC): 2 Upper Body Dressing (QC): 2 Additional Goals: 1-Demonstrate ADL Tasks, 2-Verbalize Understanding, 3- ImproveStrength/Araceli 1=Demonstrate adherence to instructed precautions during ADL tasks. 2=Patient will verbalize/demonstrate understanding of assistive devices/modifications for ADL. 3=Patient will improve strength/tolerance for activity to enable patient to perform ADL's. OT Education/Plan Problem List/Assessment Assessment: Decreased Activ Tolerance, Decreased Safety Aware, Decreased UE Strength, Dependent Transfers, Impaired Bed Mobility, Impaired Cognition, Impaired Coordination, Impaired Funct Balance, Impaired I ADL's, Impaired Self- Care Skills, Restricted Funct UE ROM Discharge Recommendations Plan/Recommendations: Continue POC Treatment Plan/Plan of Care Patient would benefit from OT for education, treatment and training to promote independence in ADL's, mobility, safety and/or upper extremity function for ADL's. Plan of Care: ADL Retraining, Functional Mobility, UE Funct Exercise/Act Treatment Duration: Nov 17, 2020 Frequency: 5 times per week Estimated Hrs Per Day: .25 hour per day Rehab Potential: Guarded Time/GCodes Start Time: 14:39 Stop Time: 14:54 Total Time Billed (hr/min): 15 Billed Treatment Time 1, JOSE RICHEY OT Nov 07, 2020 15:12
[2020-11-07 16:00] VITALS: BP 165/75
[2020-11-07] MEDS ORDERED: inSUlin ASPART (NovoLOG) 1 UNIT/0.01 ML (CHARGE PER UNIT) SC SCH (16:00)
[2020-11-07] MEDS: inSUlin ASPART (NovoLOG) 1 UNIT/0.01 ML (CHARGE PER UNIT) SC SCH ×2 (16:39→20:32)
[2020-11-07 20:00] VITALS: BP 172/78
[2020-11-07] MEDS: FAMOTIDINE 20 MG (PEPCID) TABLET PO SCH (20:31)
[2020-11-07] MEDS: DOCUSATE SODIUM 100 MG (COLACE) CAP PO SCH (20:32)
[2020-11-07] MEDS: meTOprolol TARTRATE 25 MG (LOPRESSOR) TABLET PO SCH (20:32)
[2020-11-07 23:18] VITALS: BP 151/69
[2020-11-08] MEDS: ENOXAPARIN 80 MG/0.8 ML (LOVENOX) SYR SC SCH (00:24)
[2020-11-08] MEDS: fentaNYL INJ 100 MCG/2 ML AMP IV PRN ×3 (01:08→21:16)
[2020-11-08 04:38] VITALS: BP 158/80
[2020-11-08] MEDS: NS IV 1000 ML 1,000 ML IV SCH ×3 (05:06→17:33)
[2020-11-08 05:26] LABS: HEMATOCRIT 31 % (35-52); HEMOGLOBIN 9.8 g/dL (11.5-16.0); MEAN CORPUSCULAR HEMOGLOBIN 31 pg (25-34); MEAN CORPUSCULAR HGB CONC 32 g/dL (32-36); MEAN CORPUSCULAR VOLUME 95 fL (80-99); MEAN PLATELET VOLUME 9.5 fL (9.0-12.2); PLATELET COUNT 341 10^3/uL (130-400); WHITE BLOOD COUNT 6.8 10^3/uL (4.3-11.0)
[2020-11-08 05:38] LABS: POTASSIUM 3.5 MMOL/L (3.6-5.0)
[2020-11-08 05:39] LABS: CALCIUM 8.6 MG/DL (8.5-10.1)
[2020-11-08 05:43] LABS: CREATININE SERUM 1.22 MG/DL (0.60-1.30)
[2020-11-08] MEDS: inSUlin ASPART (NovoLOG) 1 UNIT/0.01 ML (CHARGE PER UNIT) SC SCH ×4 (05:56→21:44)
[2020-11-08] MEDS: meTOprolol TARTRATE 25 MG (LOPRESSOR) TABLET PO SCH ×2 (07:46→21:04)
[2020-11-08] MEDS: PANTOPRAZOLE 40 MG (PROTONIX) TAB PO SCH (07:46)
[2020-11-08] MEDS: DOCUSATE SODIUM 100 MG (COLACE) CAP PO SCH ×2 (07:46→21:04)
[2020-11-08] MEDS: SERTRALINE 50 MG (ZOLOFT) TABLET PO SCH (07:46)
[2020-11-08] MEDS: amLODIPine 10 MG (NORVASC) TAB PO SCH (07:46)
[2020-11-08 07:53] VITALS: BP 169/70
--- NOTE | 2020-11-08 09:51 | ST Dysphagia Evaluation ---
Speech Evaluation-General Medical Diagnosis PE Onset Date: Nov 06, 2020 Therapy Diagnosis Therapy Diagnosis: Oropharyngeal Dysphagia Precautions Precautions: Aspiration Precautions/Isolations: Aspiration, Fall Prevention, Standard Precautions Referral Referring Physician: Dr. Hahn Medical History Pertinent Medical History: CVA, DM, GERD, HTN Reviewed History: Yes Social History Home: [facility] Speech PLF/Current-Dysphagia Prior Level of Function Patient lives in a NH where she is assisted with all of her daily needs. Subjective Patient was pleasant and cooperative with the Bedside Dysphagia Evaluation. Patient was unable to verbalize upon admission on 11/07/2020. She is verbalizing at 60% today with meaningful words. Cognitive Status Patient is aphasic. She was able to answer questions and demo automatic speech for conversation. Oral Motor Skills Dentition: Natural, Tumbled Current Food Consistancy: Clear Liquids Ability to Follow Directions: Good Oral Expression Ability: Moderate Impairment Voice Voice Phonatory-Based Quality: Normal Voice Pitch: Normal Voice Loudness: Normal Face Facial Symmetry: Symmetrical Oral-Facial Assessment Oral-Facial Dentition: Normal Labial Seal Description: Normal Lingual Protrusion: Normal Lingual ROM: Normal Lingual Strength: Normal Pharynx Velopharyngeal Move.: Normal Volitional Dry Swallow: Yes Dysphagia Evaluation Consistencies Presented: Thin Liquid, Bivalve Thick Liquid, Pureed Oral Phase: Reduced Oral Transit Oral phase demo delay of swallow onset. Patient utilizes chin tuck without cues. No cough with intake. Oral clear without residue or pocketing noted. Pharyngeal Phase: Decreased A/P Bolus Transit, Delayed Swallow Pharyngeal phase demo delay of swallow onset. Patient utilizes chin tuck without cues. No cough with intake. Dietary Recommendations: Pureed Swallowing Precautions: Alternate Liquids/Solids, Chin Tuck, Decreased Bolus 1/2 Tsp, Liquids from Straw, Liquids from Spoon, Oral Supervision Staff, Small Bites and Sips, Sitting Upright 90 Degrees, Sitting 90 Degrees 30 Post Intake Dysphagia Evaluation Summary Patient is a pleasant 80 y/o female who was admitted to the hospital via ED due to PE. Patient had a stroke in September with residual affects. Patient was aphasic upon hospital arrival yesterday. Her speech is returning with automatic speech at 60% today. Patient completed BDE with thin liquids at small sips via straw and 1/2 tsp without coughing. She does utilize a chin tuck and swallow onset is delayed at >5 sec. Patient was presented nectar liquids via 1/2 tsp and sips via straw with swallow delay, however onset was slightly improved. No coughing or overt s/s noted of aspiration. Patient is currently on clear liquids, however she completed safe intake with puree. Patient was reported to be on puree diet at the [facility]. Patient is recommended to be upgraded to Dysphagia I with nectar consistency liquids. This information was written on the white board in her room as well as provided to her nurse, Samantha. Speech Short Term Goals Short Term Goals Short Term Goals 1) Patient will tolerate least restrictive diet level without s/s of aspiration at 80% or greater. 2) Patient/caregiver will utilize compensatory strategies for safe oral intake as trained with 90% or greater with minimal cues. 3) Patient will complete speech activities for improving communication at 80%. Speech Fdc Goals Fdc Goals Patient will maintain adequate nutrition via safe effective swallow function. Patient will be able to effectively communicate her wants/needs. Speech-Plan Patient/Family Goals Patient/Family Goals: Patient will return to the [place] upon discharge. Treatment Plan Speech Therapy Treatment Plan: Continue Plan of Care Treatment Duration: Nov 13, 2020 Frequency: 4 times per week Estimated Hrs Per Day: .25 hour per day Rehab Potential: Guarded Barriers to Learning: Patient's expressive aphasia, recent CVA, PE Pt/Family Agrees to Plan: Yes Safety Risks/Education Teaching Recipient: Patient Teaching Methods: Discussion Response to Teaching: Verbalize Understanding, Reinforcement Needed Education Topics Provided: Diet level, safety of oral intake, communication strategies Time Speech Therapy Time In: 09:05 Speech Therapy Time Out: 09:30 Total Billed Time: 25 Billed Treatment Time 1, DYSEVS, DYST, SPSNDCOMP, SLTS COOKIE Avila Nov 08, 2020 09:51
--- NOTE | 2020-11-08 09:56 | Physical Therapy Daily Note ---
PT Daily Note-Current Subjective Patient in bed pre tx, agrees to PT, has no complaints of pain but seems to have pain in various places as she is being assisted with mobility, even with gentle assist. Patient can say a few words but it doesn't seem to be enough to communicate. Appearance Patient in bed post tx with nurse call, phone, tray, all needs met, bed alarm on. Mental Status Patient Orientation: Person, Confused, Unable to Assess Transfers SCALE: Activities may be completed with or without assistive devices. 4-Ckaejfffmi-xfoqhfq completes the activity by him/herself with no assistance from a helper. 5-Set-up or Clean-up Assistance-helper sets up or cleans up; patient completes activity. [place] assists only prior to or following the activity. 4-Supervision or Touching Assistance-helper provides verbal cues and/or touching/steadying and/or contact guard assistance as patient completes activity. Assistance may be provided throughout the activity or intermittently. 3-Partial/Moderate Assistance-helper does LESS THAN HALF the effort. [place] lifts, holds or supports trunk or limbs, but provides less than half the effort. 2-Substantial/Maximal Assistance-helper does MORE THAN HALF the effort. [place] lifts or holds trunk or limbs and provides more than half the effort. 1-Epkrvqkjj-brhiht does ALL the effort. Patient does none of the effort to complete the activity. Or, the assistance of 2 or more helpers is required for the patient to complete the activity. If activity was not attempted, code reason: 7-Patient Refused. 9-Not Applicable-not attempted and the patient did not perform the activity before the current illness, exacerbation or injury. 10-Not Attempted due to Environmental Limitations-(lack of equipment, weather restraints, etc.). 88-Not Attempted due to Medical Conditions or Safety Concerns. Roll Left & Right (QC): 1 Sit to Lying (QC): 1 Lying to Sitting/Side of Bed(Q: 1 Patient sat on the side of the bed dependently, she was able to sit for about 5 min before needing to lay down, she performed a few exercises with her left leg but needed constant cues to stay on task, she didn't seem to understand instructions for further exercises Exercises Seated Therapy Exercises: Long arc quads Seated Reps: 10 (left side only) Assessment Current Status: Poor Progress dependent for mobility PT Nursing Home Goals Nursing Home Goals PT Lead Cook Goals Time Frame: Nov 14, 2020 Roll Left & Right (QC): 2 Sit to Lying (QC): 2 Lying-Sitting on Side/Bed(QC): 2 PT Plan Problem List Problem List: Activity Tolerance, Functional Strength, Safety, Balance, Gait, Transfer, Bed Mobility, ROM Treatment/Plan Treatment Plan: Continue Plan of Care Treatment Plan: Bed Mobility, Education, Functional Activity Araceli, Functional Strength, Safety, Therapeutic Exercise, Transfers Treatment Duration: Nov 14, 2020 Frequency: 6 times per week Estimated Hrs Per Day: .25 hour per day Patient and/or Family Agrees t: Yes Safety Risks/Education Patient Education: Correct Positioning, Safety Issues Teaching Recipient: Patient Teaching Methods: Demonstration, Discussion Response to Teaching: Reinforcement Needed Time/GCodes Time In: 929 Time Out: 941 Total Billed Treatment Time: 12 Total Billed Treatment 1 visit FA 12' ARNULFO GOVEA PT Nov 08, 2020 09:56
[2020-11-08] MEDS ORDERED: cefTRIAXone 1,000 MG in WATER (STERILE) FOR INJECTION 10 ML IV SCH (10:45)
--- NOTE | 2020-11-08 10:54 | Progress Note - Hospitalist ---
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 She is unable to provide me much history due to her aphasia. I called and spoke with her daughter and her PCP Kizzy Mix NP. Daughter reports she had a stroke back in September and was lifeflighted to [place] for possible thrombectomy but ultimately did not end up getting that done due to location of the clot. She has since has residual right sided weakness and aphasia since then. RACHNA Mix then told me that she has been feeling well for a few weeks and has lost about 20lbs. She has not been eating or drinking much and has has nausea and possibly some vomiting. She was treated recently for a UTI with Bactrim for e coli but has continued to not feel well and repeat UA in the ER was consistent with UTI. I did confirm that previous e coli was sensitivie to cephalosporins. Subjective/Events-last exam Pt more talkative today. Stil hard to understand but improved from yesterday. Worked with speech this morning. RN states doing better and taking more in. Objective Exam Vital Signs Vital Signs Date Time Temp Pulse Resp B/P (MAP) Pulse Ox O2 Delivery O2 Flow Rate FiO2 11/08/20 08:08 Room Air 11/08/20 07:53 36.2 81 22 169/70 (103) 98 11/06/20 23:03 21 Capillary Refill : Less Than 3 Seconds General Appearance: No Apparent Distress, Chronically ill Respiratory: Lungs Clear, No Respiratory Distress Cardiovascular: Regular Rate, Rhythm, No Murmur Gastrointestinal: Normal Bowel Sounds, Non Tender, Soft Extremity: Pedal Edema, Swelling Neurologic/Psychiatric: Alert, Aphasia Results/Procedures Lab Laboratory Tests 11/08/20 04:50 Patient resulted labs reviewed. Imaging: Reviewed Imaging Report Assessment/Plan Assessment and Plan Assess & Plan/Chief Complaint Bilateral PE Compensating well, satting 98% on room air still No longer vomiting so will start on Eliquis today Recurrent UTI Culture with klebsiella, sensitivities pending Continue Rocephin Expressive Aphasia CVA with residual deficits- right sided PT/OT/Speech Continue home meds IDDMII Fasting blood sugar this AM was 119 SSI HTN BP a little elevated, trend with resumption of medicines DVT ppx; anticoagulation as above Diagnosis/Problems Diagnosis/Problems (1) Essential (primary) hypertension Status: Chronic (2) Obesity Status: Chronic Qualifiers: Obesity type: unspecified obesity type Obesity classification: adult class 1 (BMI 30 - 34.9) Serious obesity comorbidity presence: without serious comorbidity Body mass index: BMI 31.0-31.9 Qualified Codes: E66.9 - Obesity, unspecified; Z68.31 - Body mass index [BMI] 31.0-31.9, adult (3) NSTEMI (non-ST elevated myocardial infarction) Status: Acute (4) Insulin dependent diabetes mellitus Status: Chronic (5) Prophylactic measure Status: Acute (6) UTI (urinary tract infection) Status: Acute Qualifiers: Urinary tract infection type: acute cystitis Hematuria presence: with hematuria Qualified Codes: N30.01 - Acute cystitis with hematuria (7) CVA, old, aphasia Status: Chronic (8) CVA, old, hemiparesis Status: Chronic (9) Pulmonary embolism Status: Acute Qualifiers: Pulmonary embolism type: multiple subsegmental (without acute cor pulmonale) Qualified Codes: I26.94 - Multiple subsegmental pulmonary emboli without acute cor pulmonale (10) Nausea & vomiting Status: Acute Qualifiers: Vomiting Intractability: intractable SANDY BRANDON MD Nov 08, 2020 10:54
[2020-11-08] MEDS: APIXABAN 5 MG (ELIQUIS) TABLET PO SCH ×2 (11:06→21:04)
[2020-11-08] MEDS ORDERED: MEROPENEM 500 MG in WATER (STERILE) FOR INJECTION 10 ML IV SCH (12:00)
[2020-11-08 12:56] VITALS: BP 168/72
--- NOTE | 2020-11-08 14:12 | Occupational Ther Daily Note ---
OT Current Status-Daily Note Subjective Pt laying in bed, agreeable to OT Tx. Pt communicated with this therapist through simple phrases and nodding/shaking her head. Mental Status/Objective Patient Orientation: Person, Unable to Assess ADL-Treatment Therapy Code Descriptions/Definitions Functional [place] Measure: 0=Not Assessed/NA 4=Minimal Assistance 1=Total Assistance 5=Supervision or Setup 2=Maximal Assistance 6=Modified [place] 3=Moderate Assistance 7=Complete IndependenceSCALE: Activities may be completed with or without assistive devices. 9-Crumbgiymg-jxmzjrj completes the activity by him/herself with no assistance from a helper. 5-Set-up or Clean-up Assistance-helper sets up or cleans up; patient completes activity. [place] assists only prior to or following the activity. 4-Supervision or Touching Assistance-helper provides verbal cues and/or touching/steadying and/or contact guard assistance as patient completes activity. Assistance may be provided throughout the activity or intermittently. 3-Partial/Moderate Assistance-helper does LESS THAN HALF the effort. [place] lifts, holds or supports trunk or limbs, but provides less than half the effort. 2-Substantial/Maximal Assistance-helper does MORE THAN HALF the effort. [place] lifts or holds trunk or limbs and provides more than half the effort. 2-Wahdoqddy-tfmscq does ALL the effort. Patient does none of the effort to complete the activity. Or, the assistance of 2 or more helpers is required for the patient to complete the activity. If activity was not attempted, code reason: 7-Patient Refused. 9-Not Applicable-not attempted and the patient did not perform the activity before the current illness, exacerbation or injury. 10-Not Attempted due to Environmental Limitations-(lack of equipment, weather restraints, etc.). 88-Not Attempted due to Medical Conditions or Safety Concerns. Oral Hygiene (QC): 5 (set up with oral swab) Other Treatment Pt laying in bed, agreeable to OT Tx. OT performed gentle PROM to pt's RUE, x10 reps finger flexion/extension, elbow flexion/extension and wrist flexion/extension. Pt reports increased pain with movements requesting this therapist to stop. Pt able to clean mouth/tongue with oral swab after set up assistance, and washed her face with set up assist of wash cloth. Pt only used LUE with tasks (impaired movement RUE). Pt voiced pleasure with being able to wash her face and get cleaned up. OT assisted pt with washing hands. Pt repeatedly stated "thank you so much" to therapist as she left the room. Post tx, pt laying in bed, call light in reach and all needs met. Education OT Patient Education: Correct positioning, Exercise program, Modified ADL techniques, Progress toward Goal/Update tx plan, Purpose of tx/functional activities Teaching Recipient: Patient Teaching Methods: Discussion Response to Teaching: Verbalize Understanding OT Prison Goals Prison Goals Time Frame: Nov 17, 2020 Eating (QC): 3 Oral Hygiene (QC): 3 Toileting Hygiene (QC): 2 Shower/Bathe Self (QC): 2 Upper Body Dressing (QC): 2 Additional Goals: 1-Demonstrate ADL Tasks, 2-Verbalize Understanding, 3- ImproveStrength/Araceli 1=Demonstrate adherence to instructed precautions during ADL tasks. 2=Patient will verbalize/demonstrate understanding of assistive devices/modifications for ADL. 3=Patient will improve strength/tolerance for activity to enable patient to perform ADL's. OT Education/Plan Problem List/Assessment Assessment: Decreased Activ Tolerance, Decreased UE Strength, Impaired Bed Mobility, Impaired Funct Balance, Impaired I ADL's, Impaired Self-Care Skills, Restricted Funct UE ROM Discharge Recommendations Plan/Recommendations: Continue POC Treatment Plan/Plan of Care Patient would benefit from OT for education, treatment and training to promote independence in ADL's, mobility, safety and/or upper extremity function for ADL's. Plan of Care: ADL Retraining, Functional Mobility, UE Funct Exercise/Act Treatment Duration: Nov 17, 2020 Frequency: 5 times per week Estimated Hrs Per Day: .25 hour per day Rehab Potential: Guarded Time/GCodes Start Time: 13:47 Stop Time: 13:57 Total Time Billed (hr/min): 10 Billed Treatment Time 1, ADL JOSE CHAND OT Nov 08, 2020 14:12
[2020-11-08 16:00] VITALS: BP 192/72
[2020-11-08 20:00] VITALS: BP 157/75
[2020-11-08] MEDS: MEROPENEM 500 MG in WATER (STERILE) FOR INJECTION 10 ML IV SCH (21:03)
[2020-11-08] MEDS: FAMOTIDINE 20 MG (PEPCID) TABLET PO SCH (21:04)
[2020-11-09] VITALS: BP 158/77
[2020-11-09] MEDS: MEROPENEM 500 MG in WATER (STERILE) FOR INJECTION 10 ML IV SCH ×3 (02:28→13:09)
[2020-11-09] MEDS: NS IV 1000 ML 1,000 ML IV SCH (02:28)
[2020-11-09 04:17] VITALS: BP 176/67
[2020-11-09] MEDS: inSUlin ASPART (NovoLOG) 1 UNIT/0.01 ML (CHARGE PER UNIT) SC SCH ×2 (05:27→10:52)
[2020-11-09] MEDS: APIXABAN 5 MG (ELIQUIS) TABLET PO SCH (08:15)
[2020-11-09] MEDS: meTOprolol TARTRATE 25 MG (LOPRESSOR) TABLET PO SCH (08:16)
[2020-11-09] MEDS: PANTOPRAZOLE 40 MG (PROTONIX) TAB PO SCH (08:16)
[2020-11-09] MEDS: SERTRALINE 50 MG (ZOLOFT) TABLET PO SCH (08:16)
[2020-11-09] MEDS: DOCUSATE SODIUM 100 MG (COLACE) CAP PO SCH (08:16)
[2020-11-09] MEDS: amLODIPine 10 MG (NORVASC) TAB PO SCH (08:16)
[2020-11-09 08:28] VITALS: BP 197/82
[2020-11-09] MEDS ORDERED: ERTA1VIA4 IJ (10:16)
[2020-11-09] MEDS ORDERED: APIX5TAB PO (10:16)
--- NOTE | 2020-11-09 11:27 | Discharge Summary ---
Diagnosis/Chief Complaint Date of Admission Nov 06, 2020 at 20:20 Date of Discharge Discharge Date: Nov 09, 2020 Admission Diagnosis Bilateral PE Primary Care Lukasz Coughlin MD Discharge Diagnosis (1) Essential (primary) hypertension Status: Chronic (2) Obesity Status: Chronic (3) NSTEMI (non-ST elevated myocardial infarction) Status: Acute (4) Insulin dependent diabetes mellitus Status: Chronic (5) Prophylactic measure Status: Acute (6) UTI (urinary tract infection) Status: Acute (7) CVA, old, aphasia Status: Chronic (8) CVA, old, hemiparesis Status: Chronic (9) Pulmonary embolism Status: Acute (10) Nausea & vomiting Status: Acute Discharge Summary Discharge Physical Exam Allergies: Coded Allergies: No Allergy Information Available (Unverified , 11/06/20) Vitals & I&Os Vital Signs Date Time Temp Pulse Resp B/P (MAP) Pulse Ox O2 Delivery O2 Flow Rate FiO2 11/09/20 08:28 36.2 80 20 197/82 (120) 100 Room Air 11/06/20 23:03 21 Hospital Course Labs (last 24 hrs) Laboratory Tests 11/08/20 15:49: Glucometer 172H 11/08/20 21:18: Glucometer 202H 11/09/20 05:20: Glucometer 156H Microbiology 11/06/20 Urine Culture - Final, Complete Klebsiella pneumoniae Patient resulted labs reviewed. Pending Labs Laboratory Tests 11/09/20 05:20: Glucometer 156 Imaging: Reviewed Imaging Report Discharge Home Medications: Active Scripts Active Eliquis (Apixaban) 5 Mg Tablet 5 Mg PO BID 30 Days TAKE 2 TABLETS BID X 7 DAYS, THEN 1 TABLET BID Ertapenem (Ertapenem Sodium) 1 Gm Vial 1 Gm IJ DAILY 7 Days Reported Ondansetron Odt (Ondansetron) 4 Mg Tab.rapdis 4 Mg PO Q4H PRN Tylenol Extra Strength (Acetaminophen) 500 Mg Tablet 500 Mg PO Q6H PRN Tramadol HCl 50 Mg Tablet 50 Mg PO Q6H PRN Milk of Magnesia (Magnesium Hydroxide) 2,400 Mg/10 Ml Oral.susp 30 Ml PO DAILY PRN GIVE IF NO BM IN 48 HOURS Humalog Kwikpen (Insulin Lispro) 100 Unit/1 Ml Insuln.pen Unit SQ AC 0-139=0 UNITS 140-175=1 UNIT 176-200=2 UNITS 201-250=3 UNITS 251-299=2 UNITS 300-400=7 UNITS CALL PHYSICIAN IF BS IS UNDER 70 OR OVER 400 Metoprolol Tartrate 25 Mg Tablet 25 Mg PO BID HOLD IF BP LESS THAN 100/60 OR HR LESS THAN 60 Metformin HCl 1,000 Mg Tablet 1,000 Mg PO BID Sertraline HCl 50 Mg Tablet 50 Mg PO DAILY Omeprazole 40 Mg Capsule.dr 40 Mg PO DAILY Amlodipine Besylate 10 Mg Tablet 10 Mg PO DAILY HOLD IF BP LESS THAN 100/60 OR HR LESS THEN 60 Acid Manager Gallery (FAMOTIDINE) (Famotidine) 20 Mg Tablet 20 Mg PO HS Colace (Docusate Sodium) 100 Mg Capsule 100 Mg PO BID Atorvastatin Calcium 40 Mg Tablet 40 Mg PO HS Instructions to patient/family Please see electronic discharge instructions given to patient. Problem Qualifiers (1) Obesity: Obesity type: unspecified obesity type Obesity classification: adult class 1 (BMI 30 - 34.9) Serious obesity comorbidity presence: without serious comorbidity Body mass index: BMI 31.0-31.9 Qualified Codes: E66.9 - Obesity, unspecified; Z68.31 - Body mass index [BMI] 31.0-31.9, adult (2) UTI (urinary tract infection): Urinary tract infection type: acute cystitis Hematuria presence: with hematuria Qualified Codes: N30.01 - Acute cystitis with hematuria (3) Pulmonary embolism: Pulmonary embolism type: multiple subsegmental (without acute cor pulmonale) Qualified Codes: I26.94 - Multiple subsegmental pulmonary emboli without acute cor pulmonale (4) Nausea & vomiting: Vomiting Intractability: intractable SANDY BRANDON MD Nov 09, 2020 11:27
[2020-11-09] MEDS ORDERED: lisINopril 10 MG (PRINIVIL) TABLET PO ONE (11:45)
[2020-11-09 11:52] VITALS: BP 171/76
--- NOTE | 2020-11-09 12:19 | Speech Therapy Daily Note ---
Speech Daily Progress Note Subjective Date Seen by Provider: Nov 09, 2020 Time Seen by Provider: 00:10 Patient was resting in her bed with her lunch on the bedside table. Objective Patient's speech is more jargon today with decreased ability to convey verbal communication. Patient was hollering out to the nurses and other staff although it was mostly not understood. Patient consumed 3 bites and 2 sips of her supplement without difficulty. She refused to eat any more than that. Assessment Assessment Current Status: Poor Progress Treatment Plan Continue Plan of Care Speech Short Term Goals Short Term Goals Short Term Goals 1) Patient will tolerate least restrictive diet level without s/s of aspiration at 80% or greater. 2) Patient/caregiver will utilize compensatory strategies for safe oral intake as trained with 90% or greater with minimal cues. 3) Patient will complete speech activities for improving communication at 80%. Speech Detention Goals Detention Goals Patient will maintain adequate nutrition via safe effective swallow function. Patient will be able to effectively communicate her wants/needs. Speech-Plan Patient/Family Goals Patient/Family Goals: Patient will return to the [facility] upon discharge. Treatment Plan Speech Therapy Treatment Plan: Continue Plan of Care Treatment Duration: Nov 13, 2020 Frequency: 4 times per week Estimated Hrs Per Day: .25 hour per day Rehab Potential: Guarded Barriers to Learning: Second stroke with expressive aphasia, age Pt/Family Agrees to Plan: Yes Safety Risks/Education Teaching Recipient: Patient Teaching Methods: Demonstration, Discussion Response to Teaching: Verbalize Understanding, Unable to Comprehend, Reinforcement Needed Education Topics Provided: Safety with oral intake Time Speech Therapy Time In: 11:45 Speech Therapy Time Out: 11:55 Total Billed Time: 10 Billed Treatment Time 1, SLAMBER, COOKIE Herrera Nov 09, 2020 12:19
--- NOTE | 2020-11-09 13:12 | Discharge Inst-Skilled Nursing ---
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 She is unable to provide me much history due to her aphasia. I called and spoke with her daughter and her PCP Kizzy Mix NP. Daughter reports she had a stroke back in September and was lifeflighted to [place] for possible thrombectomy but ultimately did not end up getting that done due to location of the clot. She has since has residual right sided weakness and aphasia since then. RACHNA Mix then told me that she has been feeling well for a few weeks and has lost about 20lbs. She has not been eating or drinking much and has has nausea and possibly some vomiting. She was treated recently for a UTI with Bactrim for e coli but has continued to not feel well and repeat UA in the ER was consistent with UTI. I did confirm that previous e coli was sensitivie to cephalosporins. Consult/Follow Up/Orders Follow Up Appt.: With Dr Coughlin in 1 week Skilled NF Admit to: [facility] Certification ([facility]) I certify that SNF services are required to be given on an inpatient basis because of the above named patient's need for [facility] care on a continuing basis for the conditions(s) for which he/she was receiving inpatient hospital services prior to his/her transfer to the SNF. Prison Facility Order: Nursing Services, Corporate Legal Manager-Evaluate & Treat, Physical Therapy-Evaluate & Treat, Speech Language-Evaluate & Treat Oxygen Delivery Method: Room Air Discharge Diet: Other Diet (Dysphagia 1, pureed) Resuscitation Status: Do Not Resuscitate New & Resume Previous Orders Sandy Hahn Nov 09, 2020 13:11 SANDY HAHN MD Nov 09, 2020 13:12
[2020-11-09 15:20] VITALS: BP 171/76
[2020-11-15] MEDS ORDERED: APIXABAN 5 MG (ELIQUIS) TABLET PO SCH (09:00)
== END 2020-11-09 15:20 | DRG 176 ==
LOC: EDUNIT# 19:29 → ER 19:30 → 4TH 20:20
PROVIDERS: ADMIT Internal Medicine; ATTEND Internal Medicine
DX: I26.99 Other pulmonary embolism without acute cor pulmonale (principal); I69.351 Hemiplegia and hemiparesis following cerebral infarction affecting right dominant side; N39.0 Urinary tract infection, site not specified; I10 Essential (primary) hypertension; I69.320 Aphasia following cerebral infarction; B96.1 Klebsiella pneumoniae [K. pneumoniae] as the cause of diseases classified elsewhere; E11.9 Type 2 diabetes mellitus without complications; E66.9 Obesity, unspecified; Z66 Do not resuscitate; E78.00 Pure hypercholesterolemia, unspecified; K21.9 Gastro-esophageal reflux disease without esophagitis; F32.9 Major depressive disorder, single episode, unspecified; I25.2 Old myocardial infarction; Z68.31 Body mass index [BMI] 31.0-31.9, adult; Z79.4 Long term (current) use of insulin
CPT/HCPCS: 36410; 36415; 76937; 80048; 80053; 81000; 82947; 84484; 85025; 85027; 85610; 85730; 87077; 87088; 87184; 87186; 93005; 93041; 94760

== ENCOUNTER → 2020-11-06 | Outpatient (CLI) | payer MEDICARE ==
[~2020-11-06] MED LIST changes: +CATHETER FLUSH 10 ML SYR IV PRN; +HOLD METFORMIN - RECEIVED CONTRAST 20 ML VIAL IV SCH; +IOHEXOL 350 MG/ML 100 ML (OMNIPAQUE 350) VIAL IV ONE; +NS 100 ML (IVPB) BAG IV ONE
--- NOTE | 2020-11-06 17:07 | Diagnostic Imaging Report ---
PROCEDURE: CT abdomen and pelvis with contrast. TECHNIQUE: Multiple contiguous axial images were obtained through the abdomen and pelvis after administration of intravenous contrast. Auto Exposure Controls were utilized during the CT exam to meet ALARA standards for radiation dose reduction. All CT scans use one or more of the following dose optimizing techniques: automated exposure control, MA and/or KvP adjustment based on patient size and exam type or iterative reconstruction. INDICATION: Abdominal pain. Nausea. Vomiting. Weight loss. COMPARISON: None FINDINGS: Included portions of the lung bases show small right basal effusion with focal and patchy airspace densities within the right lower lobe. Overall appearance may be on the basis of pneumonia. Pulmonary infarct may have a similar appearance. CT ABDOMEN: Normal appendix cannot be adequately identified, but there is no pericecal inflammation. Small bowel loops are nondistended. Benign cyst is identified involving the inferior pole of the left kidney. Several other subcentimeter hypoenhancing spherical foci are also noted and may be on the basis of small cysts as well, but are too small to adequately characterize based on this exam. No suspicious enhancing renal lesions are seen. The adrenal glands, spleen, pancreas, and liver have normal CT appearance. There is no loculated fluid collection, free fluid or free air within the abdomen. No abnormal mesenteric or retroperitoneal adenopathy is seen. Osseous structures show no acute abnormalities. CT PELVIS: Connor catheter is present within the urinary bladder. Urinary bladder is decompressed. There is no loculated fluid collection, free fluid or free air within the pelvis. No abnormal adenopathy is seen. Osseous structures show no acute abnormalities. IMPRESSION: 1. No acute abnormalities are seen within the abdomen or pelvis. 2. Left benign renal cysts and additional smaller hypoenhancing renal foci, which again may be on the basis of renal cysts, but are too small to adequately characterize based on this exam. 3. Small right basilar effusion with probable infiltrate/pneumonia in the right lower lobe. Pulmonary infarct may have a similar appearance. If there is concern for pulmonary emboli, CTA of the chest is recommended. Report given to Kizzy Mix APRN, at 5:06 PM 11/06/2020/cb Dictated by: Dictated on workstation # [id number]
== END ==
LOC: RAD 15:00
PROVIDERS: ATTEND Nurse Practitioner Family
DX: N28.1 Cyst of kidney, acquired (principal); J90 Pleural effusion, not elsewhere classified
CPT/HCPCS: 74177

== ENCOUNTER → 2020-11-06 | Outpatient (CLI) | payer MEDICARE ==
--- NOTE | 2020-11-06 19:45 | Diagnostic Imaging Report ---
PROCEDURE: CT angiography of the chest with contrast. TECHNIQUE: Multiple contiguous axial images were obtained through the chest after uneventful bolus administration of intravenous contrast. 3D reconstructed CTA MIP acquisitions were also performed. Auto Exposure Controls were utilized during the CT exam to meet ALARA standards for radiation dose reduction. INDICATION: 80-year-old female with shortness of breath, left lower lobe infiltrate on CT abdomen and pelvis. COMPARISONS: CT abdomen and pelvis 11/06/2020 FINDINGS: There is no axillary adenopathy. There is also no hilar or mediastinal adenopathy. Cardiac contour is normal. The thoracic aortic contour is also normal with no evidence of aneurysm or dissection. The pulmonary outflow tract is prominent. The right and left pulmonary arteries are patent. There is thrombus seen extending into the right lower lobe pulmonary artery. Nonocclusive thrombus is also seen in the left lower lobe pulmonary artery. Lungs show COPD. There is a right lower lobe consolidation with a sliver right effusion. IMPRESSION: 1. Findings are consistent with pulmonary embolism with intraluminal thrombus seen in the right lower lobe pulmonary artery and nonocclusive thrombus in the left lower lobe pulmonary artery. 2. Prominent main pulmonary arteries may be a sequela of pulmonary arterial hypertension. 3. Right lower lobe consolidation. 4. Prominent coronary calcifications noted. 5. Additional nonemergent findings as described above. Message left on cell phone of Kizzy Mix APRN at 7:43 PM 11/06/2020/tatianna Ferro contacted Kizzy Mix APRN, at the time of dictation. Dictated by: Dictated on workstation # [id number]
== END ==
LOC: RAD 18:22
PROVIDERS: ATTEND Physician Assistant
DX: R93.5 Abnormal findings on diagnostic imaging of other abdominal regions, including retroperitoneum (principal); R92.8 Other abnormal and inconclusive findings on diagnostic imaging of breast
CPT/HCPCS: 71275

== ENCOUNTER → 2020-11-18 | Outpatient (CLI) | payer MEDICARE ==
[~2020-11-18] MED LIST changes: +APIX5TAB PO; -CATHETER FLUSH 10 ML SYR IV PRN; +ERTA1VIA4 IJ; -HOLD METFORMIN - RECEIVED CONTRAST 20 ML VIAL IV SCH; -IOHEXOL 350 MG/ML 100 ML (OMNIPAQUE 350) VIAL IV ONE; +METO50TA15 PO; +MULT-166 PO; -NS 100 ML (IVPB) BAG IV ONE; -OMEP40CA27 PO; +OMEP40CA6 PO; +PANT40TA52 PO; +POTA8TAB54 PO; +TORS20TA3 PO
[2020-11-18 13:01] LABS: BILIRUBIN,URINE NEGATIVE (NEGATIVE); CLARITY,URINE CLOUDY; COLOR,URINE YELLOW; GLUCOSE, URINE (UA) NEGATIVE (NEGATIVE); KETONES,URINE NEGATIVE (NEGATIVE); LEUKOCYTE ESTERASE ,URINE 2+ (NEGATIVE); NITRITE,URINE NEGATIVE (NEGATIVE); PROTEIN,URINE 2+ (NEGATIVE)
[2020-11-18 13:07] LABS: BACTERIA,URINE MODERATE /HPF; WBC,URINE TNTC /HPF
[2020-11-18 13:08] LABS: YEAST,URINE LARGE /HPF
== END ==
PROVIDERS: ATTEND Internal Medicine
DX: Z01.89 Encounter for other specified special examinations (principal)
CPT/HCPCS: 81000; 87088

== ENCOUNTER 2020-11-27 18:56 | Inpatient (IN) | payer MEDICARE, OTHER ==
[~2020-11-27] VITALS: Ht 162.6 cm; Wt 80.0 kg
[~2020-11-27 18:56] MED LIST changes: -METO50TA15 PO; -MULT-166 PO; -PANT40TA52 PO; -POTA8TAB54 PO; -TORS20TA3 PO
[2020-11-27] MEDS ORDERED: NS IV 1000 ML 1,000 ML IV SCH (19:15)
--- NOTE | 2020-11-27 19:16 | ED General ---
General Chief Complaint: Altered Mental Status Stated Complaint: NOT EATING Source of Information: Patient Exam Limitations: No Limitations History of Present Illness Date Seen by Provider: Nov 27, 2020 Time Seen by Provider: 19:15 Initial Comments To ER from medical [facility] with reports of lethargy over the course of the past week. 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 She is on Eliquis for history of pulmonary embolism following that that was diagnosed in September of this year. Timing/Duration: 1-2 Days Severity: Moderate Associated Systoms: Denies Symptoms Allergies and Home Medications Allergies Coded Allergies: No Allergy Information Available (Unverified , 11/06/20) Home Medications Acetaminophen 500 Mg Tablet, 500 MG PO Q6H PRN for PAIN-MILD (1-4), (Reported) Amlodipine Besylate 10 Mg Tablet, 10 MG PO DAILY, (Reported) HOLD IF BP LESS THAN 100/60 OR HR LESS THEN 60 Apixaban 5 Mg Tablet, 5 MG PO BID TAKE 2 TABLETS BID X 7 DAYS, THEN 1 TABLET BID Prescribed by: SANDY BRANDON on 11/09/20 1016 Atorvastatin Calcium 40 Mg Tablet, 40 MG PO HS, (Reported) Docusate Sodium 100 Mg Capsule, 100 MG PO BID, (Reported) Ertapenem Sodium 1 Gm Vial, 1 GM IJ DAILY Prescribed by: SANDY BRANDON on 11/09/20 1016 Famotidine 20 Mg Tablet, 20 MG PO HS, (Reported) Insulin Lispro 100 Unit/1 Ml Insuln.pen, UNIT SQ AC, (Reported) 0-139=0 UNITS 140-175=1 UNIT 176-200=2 UNITS 201-250=3 UNITS 251-299=2 UNITS 300-400=7 UNITS CALL PHYSICIAN IF BS IS UNDER 70 OR OVER 400 Magnesium Hydroxide 2,400 Mg/10 Ml Oral.susp, 30 ML PO DAILY PRN for CONSTIPATION-7TH LINE, (Reported) GIVE IF NO BM IN 48 HOURS Metformin HCl 1,000 Mg Tablet, 1,000 MG PO BID, (Reported) Metoprolol Tartrate 25 Mg Tablet, 25 MG PO BID, (Reported) HOLD IF BP LESS THAN 100/60 OR HR LESS THAN 60 Omeprazole 40 Mg Capsule.dr, 40 MG PO DAILY, (Reported) Ondansetron 4 Mg Tab.rapdis, 4 MG PO Q4H PRN for CONSTIPATION-1ST LINE, (Reported) Sertraline HCl 50 Mg Tablet, 50 MG PO DAILY, (Reported) Tramadol HCl 50 Mg Tablet, 50 MG PO Q6H PRN for PAIN-MODERATE (5-7), (Reported) Patient Home Medication List Home Medication List Reviewed: Yes Review of Systems Review of Systems Constitutional: see HPI EENTM: see HPI Respiratory: no symptoms reported Cardiovascular: no symptoms reported Genitourinary: no symptoms reported Musculoskeletal: no symptoms reported Skin: no symptoms reported Psychiatric/Neurological: No Symptoms Reported Hematologic/Lymphatic: No Symptoms Reported Immunological/Allergic: no symptoms reported Past Azamsyu-Lneqvf-Lukhek Hx Past Medical History Cardiac Respiratory: No Cardiac: Yes High Cholesterol, Hypertension Neurological: Yes Stroke Genitourinary: Yes UTI-Chronic Gastrointestinal: Yes Gastroesophageal Reflux, Chronic Constipation, Esophagitis Musculoskeletal: Yes (WEAKNESS) Diabetes, Insulin dep Psychosocial: Yes Depression Integumentary: No Family Medical History No Pertinent Family Hx Physical Exam Vital Signs Vital Signs - First Documented 11/27/20 19:14 Temp 36.7 Pulse 110 Resp 16 B/P (MAP) 163/72 (102) O2 Delivery Room Air Capillary Refill : Height, Weight, BMI Height: '" Weight: lbs. oz. kg; 31.83 BMI Method: General Appearance: No Apparent Distress, WD/WN, Thin, Other (Lethargic, stares but does not verbalize anything) Eyes: Bilateral Eye Normal Inspection, Bilateral Eye PERRL, Bilateral Eye EOMI Respiratory: No Accessory Muscle Use, No Respiratory Distress Cardiovascular: Normal Peripheral Pulses, Tachycardia Gastrointestinal: Normal Bowel Sounds, Non Tender, Soft Extremity: Normal Capillary Refill, Normal Inspection Neurologic/Psychiatric: Alert, Oriented x3 Skin: Normal Color, Warm/Dry Focused Exam Lactate Level 11/27/20 19:27: Lactic Acid Level 1.83 Lactic Acid Level Laboratory Tests Test 11/27/20 19:27 Lactic Acid Level 1.83 MMOL/L (0.50-2.00) Progress/Results/Core Measures Suspected Sepsis SIRS Temperature: Pulse: Respiratory Rate: Laboratory Tests 11/27/20 19:05: White Blood Count 19.2H Blood Pressure / Mean: 11/27/20 19:27: Lactic Acid Level 1.83 Laboratory Tests 11/27/20 19:05: Creatinine 3.26H, INR Comment 4.0H, Platelet Count 385, Total Bilirubin 0.4 Results/Orders Lab Results Laboratory Tests Test 11/27/20 19:05 11/27/20 19:27 Range/Units White Blood Count 19.2 H 4.3-11.0 10^3/uL Red Blood Count 3.91 3.80-5.11 10^6/uL Hemoglobin 11.8 11.5-16.0 g/dL Hematocrit 38 35-52 % Mean Corpuscular Volume 96 80-99 fL Mean Corpuscular Hemoglobin 30 25-34 pg Mean Corpuscular Hemoglobin Concent 31 L 32-36 g/dL Red Cell Distribution Width 17.2 H 10.0-14.5 % Platelet Count 385 130-400 10^3/uL Mean Platelet Volume 11.0 9.0-12.2 fL Immature Granulocyte % (Auto) 1 % Neutrophils (%) (Auto) 85 H 42-75 % Lymphocytes (%) (Auto) 5 L 12-44 % Monocytes (%) (Auto) 8 0-12 % Eosinophils (%) (Auto) 0 0-10 % Basophils (%) (Auto) 0 0-10 % Neutrophils # (Auto) 16.4 H 1.8-7.8 10^3/uL Lymphocytes # (Auto) 1.0 1.0-4.0 10^3/uL Monocytes # (Auto) 1.6 H 0.0-1.0 10^3/uL Eosinophils # (Auto) 0.0 0.0-0.3 10^3/uL Basophils # (Auto) 0.1 0.0-0.1 10^3/uL Immature Granulocyte # (Auto) 0.2 H 0.0-0.1 10^3/uL Prothrombin Time 39.0 H 12.2-14.7 SEC INR Comment 4.0 H 0.8-1.4 Activated Partial Thromboplast Time 50 H 24-35 SEC Sodium Level 151 H 135-145 MMOL/L Potassium Level 6.9 *H 3.6-5.0 MMOL/L Chloride Level 114 H 98-107 MMOL/L Carbon Dioxide Level 20 L 21-32 MMOL/L Anion Gap 17 H 5-14 MMOL/L Blood Urea Nitrogen 94 H 7-18 MG/DL Creatinine 3.26 H 0.60-1.30 MG/DL Estimat Glomerular Filtration Rate 17 BUN/Creatinine Ratio 29 Glucose Level 202 H 70-105 MG/DL Calcium Level 9.1 8.5-10.1 MG/DL Corrected Calcium 10.0 8.5-10.1 MG/DL Total Bilirubin 0.4 0.1-1.0 MG/DL Aspartate Amino Transf (AST/SGOT) 44 H 5-34 U/L Alanine Aminotransferase (ALT/SGPT) 16 0-55 U/L Alkaline Phosphatase 73 40-136 U/L Total Protein 9.9 H 6.4-8.2 GM/DL Albumin 2.9 L 3.2-4.5 GM/DL Lactic Acid Level 1.83 0.50-2.00 MMOL/L My Orders Orders - SIN ARRIAZA APRN Cbc With Automated Diff (11/27/20 19:10) Comprehensive Metabolic Panel (11/27/20 19:10) Blood Culture (11/27/20 19:10) Sputum Culture (11/27/20 19:10) Urinalysis (11/27/20 19:10) Urine Culture (11/27/20 19:10) Protime With Inr (11/27/20 19:10) Partial Thromboplastin Time (11/27/20 19:10) Chest 1 View, Ap/Pa Only (11/27/20 19:10) Ed Iv/Invasive Line Start (11/27/20 19:10) Ed Iv/Invasive Line Start (11/27/20 19:10) Vital Signs Adult Sepsis Patie Q15M (11/27/20 19:10) O2 (11/27/20 19:10) Remove Rings In Anticipation O (11/27/20 19:10) Lactic Acid Analyzer (11/27/20 19:10) Ns Iv 1000 Ml (Sodium Chloride 0.9%) (11/27/20 19:15) Ct Head Wo (11/27/20 19:11) Manual Differential (11/27/20 19:05) Ekg Tracing (11/27/20 20:31) Insulin (Regular) Human (Novolin R (Per (11/27/20 20:45) D50w (Emergency) Syringe (Dextrose 50% 5 (11/27/20 20:45) Sodium Polystyrene Sulfonate (Kayexalate (11/27/20 20:45) Medications Given in ED Current Medications Medications Dose Ordered Sig/Guy Route Start Time Stop Time Status Last Admin Dose Admin Dextrose 50 ml ONCE ONCE IV 11/27/20 20:45 11/27/20 20:46 DC 11/27/20 20:47 50 ML Insulin Human Regular 10 unit ONCE ONCE IV 11/27/20 20:45 11/27/20 20:46 DC 11/27/20 20:46 10 UNIT Sodium Polystyrene Sulfonate 45 gm ONCE ONCE PO 11/27/20 20:45 11/27/20 20:53 DC 11/27/20 20:46 45 GM Vital Signs/I&O 11/27/20 19:14 Temp 36.7 Pulse 110 Resp 16 B/P (MAP) 163/72 (102) O2 Delivery Room Air Capillary Refill : Diagnostic Imaging Diagonstic Imaging: Xray Comments NAME: TABITHA RUTH [facility] REC#: [id number] PT STATUS: REG ER : 1940 PHYSICIAN: SIN ARRIAZA APRN ADMIT DATE: 11/27/20/ER Signed Date of Exam:11/27/20 CT HEAD WO EXAMINATION: CT head without contrast. TECHNIQUE: Multiple contiguous axial images were obtained through the brain without the use of intravenous contrast. All CT scans use one or more of the following dose optimizing techniques: automated exposure control, MA and/or KvP adjustment based on patient size and exam type or iterative reconstruction. HISTORY: Altered mental status. COMPARISON: None available. FINDINGS: No large acute territorial ischemia, mass, or hemorrhage. No midline shift or mass effect. Old infarct is seen in the left frontoparietal region. Decreased attenuation is seen in the periventricular and subcortical white matter. The ventricles and cortical sulci are prominent. The basilar cisterns are patent and unremarkable. The orbits are normal. Paranasal sinuses are normal. Mastoid air cells are clear. No soft tissue abnormality is seen. No osseus lesions or fractures are seen. IMPRESSION: 1. No large acute territorial ischemia, mass, or hemorrhage. 2. Old infarct in the left frontoparietal region. 3. Generalized parenchymal volume loss with chronic microvascular disease. Dictated by: Dictated on workstation # [id number] Dict: 11/27/201943 Trans: 11/27/201948 [facility] [id number] Interpreted by: HANH CARD DO Electronically signed by: HANH CARD DO 11/27/201948 NAME: TABITHA RUTH [facility] REC#: [id number] PT STATUS: REG ER : 1940 PHYSICIAN: SIN ARRIAZA APRN ADMIT DATE: 11/27/20/ER Signed Date of Exam:11/27/20 CT HEAD WO EXAMINATION: CT head without contrast. TECHNIQUE: Multiple contiguous axial images were obtained through the brain without the use of intravenous contrast. All CT scans use one or more of the following dose optimizing techniques: automated exposure control, MA and/or KvP adjustment based on patient size and exam type or iterative reconstruction. HISTORY: Altered mental status. COMPARISON: None available. FINDINGS: No large acute territorial ischemia, mass, or hemorrhage. No midline shift or mass effect. Old infarct is seen in the left frontoparietal region. Decreased attenuation is seen in the periventricular and subcortical white matter. The ventricles and cortical sulci are prominent. The basilar cisterns are patent and unremarkable. The orbits are normal. Paranasal sinuses are normal. Mastoid air cells are clear. No soft tissue abnormality is seen. No osseus lesions or fractures are seen. IMPRESSION: 1. No large acute territorial ischemia, mass, or hemorrhage. 2. Old infarct in the left frontoparietal region. 3. Generalized parenchymal volume loss with chronic microvascular disease. Dictated by: Dictated on workstation # [id number] Dict: 11/27/201943 Trans: 11/27/201948 [facility] [id number] Interpreted by: HANH CARD DO Electronically signed by: HANH CARD DO 11/27/201948 NAME: TABITHA RUTH [facility] REC#: [id number] PT STATUS: REG ER : 1940 PHYSICIAN: SIN ARRIAZA APRN ADMIT DATE: 11/27/20/ER Signed Date of Exam:11/27/20 CHEST 1 VIEW, AP/PA ONLY EXAMINATION: Chest 1 view HISTORY: Sepsis. Chest pain. COMPARISON: 11/06/2020. FINDINGS: The lung volumes are normal. No focal consolidation is seen. No large pleural effusion or pneumothorax is seen. The cardiomediastinal silhouette is normal in size and contour. No acute osseous abnormality is seen. IMPRESSION: 1. No acute pleuroparenchymal process. Dictated by: Dictated on workstation # [id number] Dict: 11/27/202018 Trans: 11/27/202021 [facility] [id number] Interpreted by: HANH CARD DO Electronically signed by: HANH CARD DO 11/27/202021 Departure Communication (Admissions) Spoke with Dr. Cannon. Will admit. Patient is DO NOT RESUSCITATE status. She has history of CVA with right hemiparesis. She is nonverbal per baseline. She is on potassium chloride extended release 8 mEq tablets daily. She is on Eliquis 5 mg twice daily for history of pulmonary embolism. Initial EKG done at 2036 shows prolonged QT interval of 520 ms sinus tachycardia rate of 108 with peaked T waves. Because of this I ordered calcium gluconate IV push. She received 1 L of normal saline, 1 L of LR and will switch to D5 half-normal saline for maintenance upstairs. She was intolerant of oral Kayexalate and began swatting at the nurses with attempt to administer this orally. She did receive 10 units of regular insulin IV +25 g of dextrose. Will repeat the EKG after giving the calcium gluconate. 2150-her chronic indwelling Connor catheter was changed while in the emergency room. She was noticed to have some whitish material in the inguinal folds. Unclear whether this is a cream to treat a candidal infection or discharge from the candidal infection itself. I will write for some nystatin upstairs. Impression Primary Impression: Hyperkalemia Additional Impression: Hypovolemia Disposition: ADMITTED INPATIENT Condition: Stable Admissions Decision to Admit Reason: Admit from ER (General) Decision to Admit/Date: Nov 27, 2020 Time/Decision to Admit Time: 21:06 Departure-Patient Inst. Referrals: KAYLEY KOWALSKI MD (PCP/Family) Primary Care Physician SIN ARRIAZA APRN Nov 27, 2020 19:16
[2020-11-27 19:25] LABS: ALBUMIN 2.9 GM/DL (3.2-4.5)
[2020-11-27 19:27] LABS: CALCIUM 9.1 MG/DL (8.5-10.1)
[2020-11-27 19:28] LABS: BASOPHILS # (AUTO) 0.1 10^3/uL (0.0-0.1); BASOPHILS % (AUTO) 0 % (0-10); EOSINOPHILS % (AUTO) 0 % (0-10); HEMATOCRIT 38 % (35-52); HEMOGLOBIN 11.8 g/dL (11.5-16.0); LYMPHOCYTES % (AUTO) 5 % (12-44); MEAN CORPUSCULAR HEMOGLOBIN 30 pg (25-34); MEAN CORPUSCULAR HGB CONC 31 g/dL (32-36); MEAN CORPUSCULAR VOLUME 96 fL (80-99); MONOCYTES # (AUTO) 1.6 10^3/uL (0.0-1.0); MONOCYTES % (AUTO) 8 % (0-12); NEUTROPHILS # (AUTO) 16.4 10^3/uL (1.8-7.8); NEUTROPHILS % (AUTO) 85 % (42-75); PLATELET COUNT 385 10^3/uL (130-400); TOTAL PROTEIN 9.9 GM/DL (6.4-8.2); WHITE BLOOD COUNT 19.2 10^3/uL (4.3-11.0)
[2020-11-27 19:30] LABS: BILIRUBIN,TOTAL 0.4 MG/DL (0.1-1.0)
[2020-11-27 19:32] LABS: CREATININE SERUM 3.26 MG/DL (0.60-1.30)
--- NOTE | 2020-11-27 19:48 | Diagnostic Imaging Report ---
EXAMINATION: CT head without contrast. TECHNIQUE: Multiple contiguous axial images were obtained through the brain without the use of intravenous contrast. All CT scans use one or more of the following dose optimizing techniques: automated exposure control, MA and/or KvP adjustment based on patient size and exam type or iterative reconstruction. HISTORY: Altered mental status. COMPARISON: None available. FINDINGS: No large acute territorial ischemia, mass, or hemorrhage. No midline shift or mass effect. Old infarct is seen in the left frontoparietal region. Decreased attenuation is seen in the periventricular and subcortical white matter. The ventricles and cortical sulci are prominent. The basilar cisterns are patent and unremarkable. The orbits are normal. Paranasal sinuses are normal. Mastoid air cells are clear. No soft tissue abnormality is seen. No osseus lesions or fractures are seen. IMPRESSION: 1. No large acute territorial ischemia, mass, or hemorrhage. 2. Old infarct in the left frontoparietal region. 3. Generalized parenchymal volume loss with chronic microvascular disease. Dictated by: Dictated on workstation # [id number]
--- NOTE | 2020-11-27 20:21 | Diagnostic Imaging Report ---
EXAMINATION: Chest 1 view HISTORY: Sepsis. Chest pain. COMPARISON: 11/06/2020. FINDINGS: The lung volumes are normal. No focal consolidation is seen. No large pleural effusion or pneumothorax is seen. The cardiomediastinal silhouette is normal in size and contour. No acute osseous abnormality is seen. IMPRESSION: 1. No acute pleuroparenchymal process. Dictated by: Dictated on workstation # [id number]
[2020-11-27 20:27] LABS: POTASSIUM 6.9 MMOL/L (3.6-5.0)
[2020-11-27] MEDS ORDERED: DEXTROSE 50% 50 ML (IMS) SYR IV ONE (20:45)
[2020-11-27] MEDS ORDERED: SOD POLYSTERENE 15 GM/60 ML (KAYEXALATE) UNIT DOSE PO ONE ×2 (20:45→21:00)
[2020-11-27] MEDS ORDERED: inSUlin (REGULAR) HUMAN 1 UNIT/0.01 ML (CHARGE PER UNIT) IV ONE (20:45)
[2020-11-27] MEDS ORDERED: SOD POLYSTERENE 15 GM/60 ML (KAYEXALATE) UNIT DOSE ONE (20:56)
[2020-11-27] MEDS ORDERED: LACTATED RINGERS 1,000 ML IV SCH (21:00)
[2020-11-27] MEDS ORDERED: CALCIUM GLUC. 10% 4.65 MEQ/10 ML VIAL IV ONE (21:15)
--- NOTE | 2020-11-27 21:42 | Tele-ICU Consult ---
History of Present Illness History of Present Illness Date Seen by Provider: Nov 27, 2020 Time Seen by Provider: 21:37 Date of Admission adm w lethargy, anorexia. PMH: ob DM htn NSTEMI HL CVA PE: undistressed 163/[address] 16. Na 151 K 6.9 BUN 94 Cr 3.26. WCC 19.2 INR 4 CXR unrem. IMP: NEERAJ, hyperkal./hypernat. P: Insulin/dext/kayex. ICU admission for monitoring. DNR. Reason for Visit: leth Allergies and Home Medications Allergies Coded Allergies: No Allergy Information Available (Unverified , 11/06/20) Home Medications Acetaminophen 500 Mg Tablet, 500 MG PO Q6H PRN for PAIN-MILD (1-4), (Reported) Amlodipine Besylate 10 Mg Tablet, 10 MG PO DAILY, (Reported) HOLD IF BP LESS THAN 100/60 OR HR LESS THEN 60 Apixaban 5 Mg Tablet, 5 MG PO BID TAKE 2 TABLETS BID X 7 DAYS, THEN 1 TABLET BID Prescribed by: SANDY BRANDON on 11/09/20 1016 Atorvastatin Calcium 40 Mg Tablet, 40 MG PO HS, (Reported) Docusate Sodium 100 Mg Capsule, 100 MG PO BID, (Reported) Ertapenem Sodium 1 Gm Vial, 1 GM IJ DAILY Prescribed by: SANDY BRANDON on 11/09/20 1016 Famotidine 20 Mg Tablet, 20 MG PO HS, (Reported) Insulin Lispro 100 Unit/1 Ml Insuln.pen, UNIT SQ AC, (Reported) 0-139=0 UNITS 140-175=1 UNIT 176-200=2 UNITS 201-250=3 UNITS 251-299=2 UNITS 300-400=7 UNITS CALL PHYSICIAN IF BS IS UNDER 70 OR OVER 400 Magnesium Hydroxide 2,400 Mg/10 Ml Oral.susp, 30 ML PO DAILY PRN for CONSTIPATION-7TH LINE, (Reported) GIVE IF NO BM IN 48 HOURS Metformin HCl 1,000 Mg Tablet, 1,000 MG PO BID, (Reported) Metoprolol Tartrate 25 Mg Tablet, 25 MG PO BID, (Reported) HOLD IF BP LESS THAN 100/60 OR HR LESS THAN 60 Omeprazole 40 Mg Capsule.dr, 40 MG PO DAILY, (Reported) Ondansetron 4 Mg Tab.rapdis, 4 MG PO Q4H PRN for CONSTIPATION-1ST LINE, (Reported) Sertraline HCl 50 Mg Tablet, 50 MG PO DAILY, (Reported) Tramadol HCl 50 Mg Tablet, 50 MG PO Q6H PRN for PAIN-MODERATE (5-7), (Reported) Past Medical/Social/Family Hx Patient Social History Tobacco Use?: No Substance use?: No Alcohol Use?: No Immunizations Up To Date Tetanus Booster (TDap): Unknown Current Status status: No Advance Directives: Yes Advance Directive Location: Copy placed in chart Communicates: Does Not Communicate Primary Language: Japanese Preferred Spoken Language: Japanese Is interpretation needed?: No Review of Systems Constitutional: no symptoms reported, see HPI EENTM: no symptoms reported Respiratory: no symptoms reported Cardiovascular: no symptoms reported Gastrointestinal: no symptoms reported Genitourinary: no symptoms reported Musculoskeletal: no symptoms reported Skin: no symptoms reported Psychiatric/Neurological: No Symptoms Reported All Other Systems Reviewed Negative Unless Noted: Yes Sepsis Event Evaluation Sepsis Stage: Ruled Out (na) Height, Weight, BMI Height: '" Weight: lbs. oz. kg; 25.00 BMI Method: Exam Exam Patient acknowledged, consented, and participated in this virtual visit which w as conducted using real time audio/video Vital Signs Date Time Temp Pulse Resp B/P (MAP) Pulse Ox O2 Delivery O2 Flow Rate FiO2 11/27/20 19:14 36.7 110 16 163/72 (102) Room Air Height & Weight Height: '" Weight: lbs. oz. kg; 25.00 BMI Method: General Appearance: No Apparent Distress, WD/WN, Thin, Other (Lethargic, stares but does not verbalize anything) Respiratory: No Accessory Muscle Use, No Respiratory Distress Cardiovascular: Normal Peripheral Pulses, Tachycardia Capillary Refill: Less Than 3 Seconds Extremity: Normal Capillary Refill, Normal Inspection Neurologic/Psychiatric: Alert, Oriented x3 Skin: Normal Color, Warm/Dry Results Lab Laboratory Tests 11/27/20 19:05 Assessment/Plan Assessment/Plan see freetext note. Critical Care: Critically Ill Patient Time spent on discussion(mins): 0 Diagnosis/Problems Problems/Diagonsis (1) Obesity Status: Chronic (2) Poor appetite Status: Acute (3) Essential (primary) hypertension Status: Chronic (4) Insulin dependent diabetes mellitus Status: Chronic (5) NSTEMI (non-ST elevated myocardial infarction) Status: Chronic (6) CVA, old, hemiparesis Status: Chronic (7) Hyperkalemia Status: Acute ANGELIA STAUFFER MD Nov 27, 2020 21:42
[2020-11-27 21:51] VITALS: BP 155/80
[2020-11-27] MEDS ORDERED: cefTRIAXone 1,000 MG in WATER (STERILE) FOR INJECTION 10 ML IV ONE (22:00)
[2020-11-27 22:03] LABS: CLARITY,URINE CLOUDY; COLOR,URINE YELLOW; GLUCOSE, URINE (UA) TRACE (NEGATIVE); KETONES,URINE NEGATIVE (NEGATIVE); LEUKOCYTE ESTERASE ,URINE 3+ (NEGATIVE); NITRITE,URINE POSITIVE (NEGATIVE); PH,URINE 5.5 (5-9); PROTEIN,URINE 1+ (NEGATIVE)
[2020-11-27] MEDS ORDERED: D5 1/2 NS 1000 ML IV SOLUTION 1,000 ML IV ONE (22:13)
[2020-11-27 22:17] LABS: BACTERIA,URINE LARGE /HPF; RBC,URINE 25-50 /HPF; WBC,URINE TNTC /HPF
[2020-11-27 22:18] LABS: BILIRUBIN,URINE NEGATIVE (NEGATIVE); YEAST,URINE LARGE /HPF
[2020-11-27] MEDS: D5 1/2 NS 1000 ML IV SOLUTION 1,000 ML IV SCH (22:41)
[2020-11-27 22:47] LABS: LYMPHOCYTES % (MANUAL) 8 %; MONOCYTES % (MANUAL) 12 %; NEUTROPHILS % (MANUAL) 80 %; RBC MORPH NORMAL
[2020-11-28 05:56] LABS: BASOPHILS # (AUTO) 0.1 10^3/uL (0.0-0.1); BASOPHILS % (AUTO) 0 % (0-10); EOSINOPHILS # (AUTO) 0.1 10^3/uL (0.0-0.3); EOSINOPHILS % (AUTO) 0 % (0-10); HEMATOCRIT 35 % (35-52); HEMOGLOBIN 10.9 g/dL (11.5-16.0); LYMPHOCYTES % (AUTO) 5 % (12-44); MEAN CORPUSCULAR HEMOGLOBIN 30 pg (25-34); MEAN CORPUSCULAR HGB CONC 32 g/dL (32-36); MEAN CORPUSCULAR VOLUME 96 fL (80-99); MEAN PLATELET VOLUME 10.6 fL (9.0-12.2); MONOCYTES # (AUTO) 1.5 10^3/uL (0.0-1.0); MONOCYTES % (AUTO) 7 % (0-12); NEUTROPHILS # (AUTO) 19.3 10^3/uL (1.8-7.8); NEUTROPHILS % (AUTO) 87 % (42-75); PLATELET COUNT 301 10^3/uL (130-400); WHITE BLOOD COUNT 22.3 10^3/uL (4.3-11.0)
[2020-11-28] MEDS: D5 1/2 NS 1000 ML IV SOLUTION 1,000 ML IV SCH ×2 (06:01→17:28)
[2020-11-28 06:11] LABS: CALCIUM 9.1 MG/DL (8.5-10.1)
[2020-11-28 06:15] LABS: CREATININE SERUM 2.65 MG/DL (0.60-1.30); PHOSPHORUS 2.7 MG/DL (2.3-4.7)
[2020-11-28 06:18] LABS: MAGNESIUM 1.6 MG/DL (1.6-2.4)
[2020-11-28] MEDS ORDERED: POTASSIUM CL 10MEQ/50ML IVPB 0 ML IV ONE (06:26)
[2020-11-28] MEDS: inSUlin ASPART (NovoLOG) 1 UNIT/0.01 ML (CHARGE PER UNIT) SC SCH ×4 (06:33→23:15)
[2020-11-28] MEDS: POTASSIUM CL 10MEQ/50ML IVPB 50 ML IV SCH ×5 (06:43→20:00)
[2020-11-28] MEDS: MAGNESIUM 1 GM/100 ML IVPB 100 ML IV SCH (06:43)
[2020-11-28] MEDS: KCL 20 MEQ TAB (K-DUR) PO SCH (06:43)
[2020-11-28] MEDS: MICONAZOLE 2% POWDER (DESENEX AF) 90 GM TOP SCH ×3 (10:03→20:00)
--- NOTE | 2020-11-28 11:36 | Tele-ICU Progress Note ---
Subjective Date Seen by a Provider: Nov 28, 2020 Time Seen by a Provider: 11:36 Sepsis Event Evaluation Height, Weight, BMI Height: '" Weight: lbs. oz. kg; 28.82 BMI Method: Focused Exam Lactate Level 11/27/20 19:27: Lactic Acid Level 1.83 Exam Exam Patient acknowledged, consented, and participated in this virtual visit which wa s conducted using real time audio/video Vital Signs Date Time Temp Pulse Resp B/P (MAP) Pulse Ox O2 Delivery O2 Flow Rate FiO2 11/28/20 11:35 36.2 11/28/20 10:03 100 Room Air 11/28/20 10:00 106 15 142/62 (88) 99 Room Air 11/28/20 09:00 110 29 159/80 (106) 100 Room Air 11/28/20 08:00 107 30 135/68 (90) 100 Room Air 11/28/20 07:59 37.0 11/28/20 07:00 105 16 140/64 (89) 99 Room Air 11/28/20 06:51 104 11/28/20 06:00 112 32 139/63 (88) 100 Room Air 11/28/20 05:00 107 15 139/58 (85) 99 Room Air 11/28/20 04:00 100 Room Air 11/28/20 04:00 36.4 11/28/20 04:00 111 16 145/50 (81) 100 Room Air 11/28/20 03:00 105 14 136/53 (80) 99 Room Air 11/28/20 02:00 110 21 139/64 (92) 100 Room Air 11/28/20 01:00 111 11/28/20 01:00 111 19 132/63 (86) 99 Room Air 11/28/20 00:00 108 19 144/92 (109) 99 Room Air 11/28/20 00:00 36.0 11/27/20 23:59 98 Room Air 11/27/20 23:45 110 17 154/72 (99) 99 Room Air 11/27/20 23:30 105 17 155/58 (90) 99 Room Air 11/27/20 23:15 112 14 168/68 (105) 98 Room Air 11/27/20 23:00 112 15 165/83 (113) 98 Room Air 11/27/20 22:45 116 13 155/94 (115) 98 Room Air 11/27/20 22:30 116 14 156/96 (121) 98 Room Air 11/27/20 22:15 36.0 120 14 153/80 (90) 98 Room Air 11/27/20 22:08 125 11/27/20 22:00 98 Room Air 11/27/20 21:56 36.0 Room Air 11/27/20 21:51 114 17 155/80 98 Room Air 11/27/20 19:14 36.7 110 16 163/72 (102) Room Air I & O 11/28/20 07:00 Intake Total 2000 ml Output Total 500 ml Balance 1500 ml Height & Weight Height: '" Weight: lbs. oz. kg; 28.82 BMI Method: General Appearance: No Apparent Distress, WD/WN, Thin, Other (Lethargic, stares but does not verbalize anything) Respiratory: No Accessory Muscle Use, No Respiratory Distress Cardiovascular: Normal Peripheral Pulses, Tachycardia Capillary Refill: Less Than 3 Seconds Extremity: Normal Capillary Refill, Normal Inspection Neurologic/Psychiatric: Alert, Oriented x3 Skin: Normal Color, Warm/Dry Results Lab Laboratory Tests 11/27/20 19:05 11/28/20 04:59 Assessment/Plan Assessment/Plan Available chart/ vitals / labs / Images reviewed Video assessment done using teleICU camera, rest of exam as per RN Discussed with RN Events overnight : Afebrile hemodynamically stable, no pressors, I/O = Drips: d5 1/2 ns As per RN exam : Consultants: Hospital course: 11/27 - adm w lethargy, anorexia.NEERAJ A/P NEERAJ - imroving with hydration - continue IVF - possible UTI - to tx Electrolytes derangements - replace , adjust IVF - follow at 14.00 DM , Hyperglycemia - not in DKA - ISS possible UTI - on merrem , follow cx lethargy - due to above , h/o CVA - CTH neg , follow closelu - ,needs swallow eval , goal of care discussions Coagulopathy INR 4.0 ( on eliquis for h/o PE ) -? malnutrition - follow , no active bleed , no reversam , hold eliquis Lines : peripheral Connor: chronic, changed in ER OG: Nutrition: npo today Analgesia: na Anxiety/ delirium na VTE Prophylaxis: NA Stress Ulcer Prophylaxis: na Plans in collaboration with bedside consultants and IM MDs. Discussed with RN to reach out if any questions or concerns A total of 20 minutes of critical care time was devoted to this patient today, required to treat and/or prevent further deterioration of critical care condition ( as above SETH LAMAS MD Nov 28, 2020 11:36
[2020-11-28] MEDS: MEROPENEM 500 MG/SWFI 10 ML IV PUSH IV SCH ×4 (11:47→20:16)
[2020-11-28] MEDS: fentaNYL INJ 100 MCG/2 ML AMP IVP PRN ×3 (12:32→23:16)
[2020-11-28] MEDS ORDERED: POTA8TAB54 PO (12:48)
[2020-11-28] MEDS ORDERED: TORS20TA3 PO (12:48)
[2020-11-28] MEDS ORDERED: METO50TA15 PO (12:48)
[2020-11-28] MEDS ORDERED: MULT-166 PO (12:48)
[2020-11-28] MEDS ORDERED: PANT40TA52 PO (12:48)
[2020-11-28] MEDS ORDERED: APIX5TAB PO (12:48)
--- NOTE | 2020-11-28 14:31 | History & Physical-Hospitalist ---
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 She is unable to provide any history. There is no family at the bedside. She was found to be in severe sepsis with a urinary tract infection. Her blood cultures turned positive this morning. She has a history of ESBL UTI. Source: RN/MD Exam Limitations: clinical condition Date Seen 11/28/20 Time Seen by a Provider: 09:05 Attending Physician Kareen Cannon DO PCP Lukasz Coughlin MD Referring Physician Date of Admission Nov 27, 2020 at 20:50 Home Medications & Allergies Home Medications Reviewed patient Home Medication Reconciliation performed by pharmacy medication reconciliations counter intelligence technician and/or nursing. Patients Allergies have been reviewed. Allergies Allergies Coded Allergies No Known Drug Allergies (Unverified11/28/20) Past [id number] Hx Patient Social History Tobacco Use?: No Substance use?: No Alcohol Use?: No Immunizations Up To Date Tetanus Booster (TDap): Unknown Current Status status: No Advance Directives: Yes Advance Directive Location: Family to bring in copy Communicates: Does Not Communicate Primary Language: Vietnamese Preferred Spoken Language: Vietnamese Is interpretation needed?: No Sensory deficits: Vision impairment, Speech impairment Past Medical History Surgeries: Cardiac High Cholesterol, Hypertension Stroke UTI-Chronic Gastroesophageal Reflux, Chronic Constipation, Esophagitis Diabetes, Insulin dep Depression Family Medical History No Pertinent Family Hx Review of Systems Constitutional: see HPI Physical Exam Physical Exam Vital Signs Vital Signs - First Documented 11/27/20 11/27/20 19:14 21:51 Temp 36.7 Pulse 110 Resp 16 B/P (MAP) 163/72 (102) Pulse Ox 98 O2 Delivery Room Air Capillary Refill : Less Than 3 Seconds Height, Weight, BMI Height: '" Weight: lbs. oz. kg; 28.82 BMI Method: General Appearance: Other (minimally responsive, uncooperative) HEENT: PERRL/EOMI, Pharynx Normal Respiratory: Lungs Clear, Normal Breath Sounds, No Respiratory Distress Cardiovascular: No Edema, Tachycardia Gastrointestinal: Normal Bowel Sounds, Soft Extremity: Normal Inspection, Non Tender, No Pedal Edema Neurologic/Psychiatric: Motor Weakness, Other (lethargic, uncooperative, does not follow commands, opens eyes) Skin: Normal Color, Warm/Dry Lymphatic: No Adenopathy Results Results/Procedures Labs Laboratory Tests 11/27/20 19:05 11/28/20 04:59 11/28/20 15:03 11/29/20 02:22 Patient resulted labs reviewed. Imaging: Reviewed Imaging Report Assessment/Plan Admission Diagnosis Severe sepsis due to UTI Admission Status: Inpatient Order (span 2 midnights) Reason for Inpatient Admission: Requiring IV antibiotics Assessment and Plan Severe sepsis due to UTI Chronic delgado catheter associated UTI Gram negative desirae bacteremia Acute kidney injury Hyperkalemia Hypernatremia History of CVA with residual deficits Cognitive impairment History of PE Poor prognosis Chest xray unremarkable UA consistent with UTI History of ESBL Blood cultures positive for gram negative desirae Severe NEERAJ Potassium elevated on arrival, now decreased Monitor and replace electrolytes as needed D5 1/2 NS due to hypernatremia Started on Rocephin Transition to Merrem IV fluids Palliative care consult Critical Care Critically Ill Patient Diagnosis/Problems Diagnosis/Problems (1) Severe sepsis with acute organ dysfunction Status: Acute (2) UTI (urinary tract infection) Status: Acute (3) NEERAJ (acute kidney injury) Status: Acute (4) Urinary tract infection associated with indwelling urethral catheter Status: Acute Qualifiers: Encounter type: initial encounter Qualified Codes: T83.511A - Infection and inflammatory reaction due to indwelling urethral catheter, initial encounter; N39.0 - Urinary tract infection, site not specified (5) Gram-negative bacteremia Status: Acute (6) History of ESBL Klebsiella pneumoniae infection Status: Chronic (7) Poor prognosis Status: Acute (8) History of CVA with residual deficit Status: Chronic (9) Cognitive impairment Status: Chronic (10) Hyperkaluria Status: Acute (11) Hypokalemia Status: Acute (12) Hypernatremia Status: Acute (13) History of pulmonary embolism Status: Chronic KACIE SHEN MD Nov 28, 2020 14:31
[2020-11-28 15:21] LABS: POTASSIUM 2.9 MMOL/L (3.6-5.0)
[2020-11-28 15:22] LABS: CALCIUM 9.4 MG/DL (8.5-10.1)
[2020-11-28 15:26] LABS: CREATININE SERUM 2.2 MG/DL (0.60-1.30)
[2020-11-28 15:29] LABS: MAGNESIUM 1.6 MG/DL (1.6-2.4)
[2020-11-29] MEDS ORDERED: meTOprolol 5 MG/5 ML (LOPRESSOR) VIAL IV ONE
[2020-11-29] MEDS: D5 1/2 NS 1000 ML IV SOLUTION 1,000 ML IV SCH (01:24)
[2020-11-29 03:04] LABS: BASOPHILS # (AUTO) 0.1 10^3/uL (0.0-0.1); BASOPHILS % (AUTO) 0 % (0-10); EOSINOPHILS % (AUTO) 0 % (0-10); HEMATOCRIT 34 % (35-52); HEMOGLOBIN 10.6 g/dL (11.5-16.0); LYMPHOCYTES # (AUTO) 1.4 10^3/uL (1.0-4.0); LYMPHOCYTES % (AUTO) 6 % (12-44); MEAN CORPUSCULAR HEMOGLOBIN 29 pg (25-34); MEAN CORPUSCULAR HGB CONC 31 g/dL (32-36); MEAN CORPUSCULAR VOLUME 95 fL (80-99); MEAN PLATELET VOLUME 10.9 fL (9.0-12.2); MONOCYTES # (AUTO) 1.5 10^3/uL (0.0-1.0); MONOCYTES % (AUTO) 6 % (0-12); NEUTROPHILS # (AUTO) 19.3 10^3/uL (1.8-7.8); NEUTROPHILS % (AUTO) 85 % (42-75); PLATELET COUNT 274 10^3/uL (130-400); WHITE BLOOD COUNT 22.8 10^3/uL (4.3-11.0)
[2020-11-29 03:21] LABS: INR 3.2 (0.8-1.4)
[2020-11-29 03:22] LABS: POTASSIUM 3.2 MMOL/L (3.6-5.0)
[2020-11-29 03:23] LABS: CALCIUM 8.9 MG/DL (8.5-10.1)
[2020-11-29 03:27] LABS: PHOSPHORUS 1.6 MG/DL (2.3-4.7)
[2020-11-29 03:28] LABS: CREATININE SERUM 1.91 MG/DL (0.60-1.30)
[2020-11-29 03:30] LABS: MAGNESIUM 1.5 MG/DL (1.6-2.4)
[2020-11-29] MEDS: fentaNYL INJ 100 MCG/2 ML AMP IVP PRN (03:41)
[2020-11-29] MEDS: KCL 20 MEQ TAB (K-DUR) PO SCH (04:40)
[2020-11-29] MEDS: POTASSIUM CL 10MEQ/50ML IVPB 50 ML IV SCH (04:40)
[2020-11-29] MEDS: MAGNESIUM 1 GM/100 ML IVPB 100 ML IV SCH (04:40)
[2020-11-29] MEDS: inSUlin ASPART (NovoLOG) 1 UNIT/0.01 ML (CHARGE PER UNIT) SC SCH ×2 (05:16→13:36)
[2020-11-29] MEDS: MEROPENEM 500 MG/SWFI 10 ML IV PUSH IV SCH ×2 (07:59)
[2020-11-29] MEDS: MICONAZOLE 2% POWDER (DESENEX AF) 90 GM TOP SCH ×2 (08:00→13:36)
[2020-11-29] MEDS ORDERED: D5W 1000 ML IV SOLUTION 1,000 ML IV SCH (08:15)
[2020-11-29] MEDS ORDERED: FAMOTIDINE 20MG/2ML IV (PEPCID) IVP SCH (09:00)
--- NOTE | 2020-11-29 13:00 | Speech Therapy Progress Note ---
Therapy Progress Note ST received orders for Bedside Dysphagia Evaluation. ST attempted to complete evaluation, however the patient refused to take anything by mouth. ST will follow up in the morning. COOKIE OWUSU Nov 29, 2020 13:00
--- NOTE | 2020-11-29 13:10 | Tele-ICU Progress Note ---
Subjective Date Seen by a Provider: Nov 29, 2020 Time Seen by a Provider: 13:09 Sepsis Event Evaluation Height, Weight, BMI Height: '" Weight: lbs. oz. kg; 28.82 BMI Method: Focused Exam Lactate Level 11/27/20 19:27: Lactic Acid Level 1.83 Exam Exam Patient acknowledged, consented, and participated in this virtual visit which wa s conducted using real time audio/video Vital Signs Date Time Temp Pulse Resp B/P (MAP) Pulse Ox O2 Delivery O2 Flow Rate FiO2 11/29/20 12:00 107 14 145/98 (114) 100 Room Air 11/29/20 12:00 36.0 11/29/20 11:32 98 Room Air 11/29/20 11:00 97 14 137/87 (104) 99 Room Air 11/29/20 10:00 117 27 148/94 (112) 100 Room Air 11/29/20 09:00 108 13 137/72 (93) 99 Room Air 11/29/20 08:00 101 12 147/67 (93) 100 Room Air 11/29/20 08:00 98 Room Air 11/29/20 07:00 35.9 11/29/20 07:00 112 11/29/20 07:00 105 11 135/61 (85) 100 Room Air 11/29/20 06:00 102 13 143/58 (120) 100 Room Air 11/29/20 05:00 92 12 121/52 (77) 100 Room Air 11/29/20 04:00 92 13 116/54 (74) 97 Room Air 11/29/20 03:40 36.6 11/29/20 03:40 100 Room Air 11/29/20 03:00 105 13 133/79 (87) 99 Room Air 11/29/20 02:00 102 16 121/53 (77) 99 Room Air 11/29/20 01:00 103 15 132/60 (84) 100 Room Air 11/29/20 01:00 103 11/29/20 00:00 114 18 120/50 (73) 99 Room Air 11/28/20 23:10 100 Room Air 11/28/20 23:08 37.6 Room Air 11/28/20 23:00 121 24 131/60 (79) 99 Room Air 11/28/20 22:00 122 8 110/46 (67) 100 Room Air 11/28/20 21:00 123 22 142/56 (88) 100 Room Air 11/28/20 20:10 36.2 11/28/20 20:00 130 18 148/89 (108) 99 Room Air 11/28/20 20:00 100 Room Air 11/28/20 19:00 130 11/28/20 19:00 130 16 142/68 (92) 99 Room Air 11/28/20 18:00 120 18 148/50 (82) 99 Room Air 11/28/20 17:00 118 30 153/66 (95) 99 Room Air 11/28/20 16:14 36.8 11/28/20 16:00 116 24 138/54 (82) 99 Room Air 11/28/20 15:29 100 Room Air 11/28/20 15:00 114 17 145/74 (97) 99 Room Air 11/28/20 14:00 112 16 134/73 (93) 99 Room Air I & O 11/29/20 07:00 Intake Total 2720 ml Output Total 1100 ml Balance 1620 ml Height & Weight Height: '" Weight: lbs. oz. kg; 28.82 BMI Method: General Appearance: No Apparent Distress, WD/WN, Thin, Other (Lethargic, stares but does not verbalize anything) Respiratory: No Accessory Muscle Use, No Respiratory Distress Cardiovascular: Normal Peripheral Pulses, Tachycardia Capillary Refill: Less Than 3 Seconds Extremity: Normal Capillary Refill, Normal Inspection Neurologic/Psychiatric: Alert, Oriented x3 Skin: Normal Color, Warm/Dry Results Lab Laboratory Tests 11/27/20 19:05 11/28/20 04:59 11/28/20 15:03 11/29/20 02:22 Assessment/Plan Assessment/Plan Available chart/ vitals / labs / Images reviewed Video assessment done using teleICU camera, rest of exam as per RN Discussed with RN Events overnight : Afebrile ra hemodynamically stable, no pressors, I/O = pos 440 Drips: d5 1/2 ns As per RN exam : Consultants: Hospital course: 11/27 - adm w lethargy, anorexia.NEERAJ A/P NEERAJ - imroving with hydration - continue IVF - UTI - to tx Electrolytes derangements - replace , adjust IVF DM , Hyperglycemia - not in DKA - ISS ID # bacteremia - periph blood 11/27 GNR -periph blood 11/28 GNR #possible UTI - cx 11/27 - GNR = on merrem , follow cx , might need CHO if persistent lethargy - due to above , h/o CVA - CTH neg , follow closelu - needs swallow eval , goal of care discussions Coagulopathy INR 4.0 ( on eliquis for h/o PE ) -? malnutrition - follow , no active bleed , no reversal , hold eliquis Anemia - stable Lines : peripheral Connor: chronic, changed in ER OG: Nutrition: npo today Analgesia: na Anxiety/ delirium na VTE Prophylaxis: NA Stress Ulcer Prophylaxis: na Plans in collaboration with bedside consultants and IM MDs. Discussed with RN to reach out if any questions or concerns A total of 20 minutes of critical care time was devoted to this patient today, required to treat and/or prevent further deterioration of critical care condition ( as above SETH LAMAS MD Nov 29, 2020 13:10
[2020-11-29] MEDS ORDERED: SALIVA STIMULANT MOUTH SPRAY (BIOTENE) 1.5 OZ MM PRN (16:00)
[2020-11-29] MEDS ORDERED: RT-ALBUTEROL/IPRATROPIUM 3 ML (DUONEB) VIAL INH PRN (16:00)
[2020-11-29] MEDS ORDERED: ONDANSETRON 4 MG/2 ML (SDV) Z0FRAN IVP PRN (16:00)
[2020-11-29] MEDS ORDERED: PROMETHAZINE INJ 25 MG/ML (PHENERGAN) AMP IVP PRN (16:00)
[2020-11-29] MEDS ORDERED: BISACODYL 10 MG SUPP (DULCOLAX) PR PRN (16:00)
[2020-11-29] MEDS ORDERED: ARTIFICAL TEARS 0.4 ML UNIT DOSE (REFRESH PLUS) OU PRN (16:00)
[2020-11-29] MEDS ORDERED: ACETAMINOPHEN 650 MG SUPP (TYLENOL) PR PRN (16:00)
[2020-11-29] MEDS ORDERED: LORazepam INJ 2 MG/ML (ATIVAN) VIAL IVP PRN (16:00)
[2020-11-29] MEDS ORDERED: GLYCOPYRROLATE 0.2 MG/ML (ROBINUL) 2 ML VIAL IV PRN (16:00)
--- NOTE | 2020-11-29 16:13 | Progress Note - Hospitalist ---
Subjective HPI/CC On Admission Date Seen by Provider: Nov 29, 2020 Time Seen by Provider: 09:05 Yudelka Conde is a 80 year old female with PMH CVA with residual deficits, minimally communicative, history of PE on anticoagulation, who [facility] with [facility]argy from her [facility]. She is unable to provide any history. There is no family at the bedside. She was found to be in severe sepsis with a urinary tract infection. Her blood cultures turned positive this morning. She has a history of ESBL UTI. Subjective/Events-last exam Patient more awake today. Still uncooperative and nonverbal. Focused Exam Lactate Level 11/27/20 19:27: Lactic Acid Level 1.83 Objective Exam Vital Signs Vital Signs Date Time Temp Pulse Resp B/P (MAP) Pulse Ox O2 Delivery O2 Flow Rate FiO2 11/29/20 15:52 36.6 11/29/20 12:49 106 11/29/20 12:00 14 145/98 (114) 100 Room Air Capillary Refill : Less Than 3 Seconds General Appearance: Chronically ill, Mild Distress (uncomfortable) Respiratory: Lungs Clear, Normal Breath Sounds, No Respiratory Distress Cardiovascular: No Murmur, Normal Peripheral Pulses, Tachycardia Gastrointestinal: Normal Bowel Sounds, Soft Extremity: Normal Inspection, Non Tender, No Pedal Edema Neurologic/Psychiatric: Alert, Aphasia, Disoriented Skin: Normal Color, Warm/Dry Results/Procedures Lab Laboratory Tests 11/29/20 02:22 Patient resulted labs reviewed. Imaging: Reviewed Imaging Report Assessment/Plan Assessment and Plan Assess & Plan/Chief Complaint Severe sepsis due to UTI Chronic delgado catheter associated UTI Gram negative desirae bacteremia Acute kidney injury Hyperkalemia Hypernatremia Hypophophatemia Hypomagnesemia History of CVA with residual deficits Cognitive impairment History of PE Poor prognosis Comfort measures only status UA consistent with UTI Urine culture with ESBL Klebsiella pneumonia Blood cultures positive for Klebsiella Kidney function improving Currently on Merrem Palliative care consult Due to patient agitation and discomfort with poor prognosis, decision made to transition to comfort measures only Critical Care Critically Ill Patient Diagnosis/Problems Diagnosis/Problems (1) Comfort measures only status Status: Acute (2) Severe sepsis with acute organ dysfunction Status: Acute (3) UTI (urinary tract infection) Status: Acute (4) NEERAJ (acute kidney injury) Status: Acute (5) Urinary tract infection associated with indwelling urethral catheter Status: Acute Qualifiers: Encounter type: initial encounter Qualified Codes: T83.511A - Infection and inflammatory reaction due to indwelling urethral catheter, initial enc ounter; N39.0 - Urinary tract infection, site not specified (6) Gram-negative bacteremia Status: Acute (7) History of ESBL Klebsiella pneumoniae infection Status: Chronic (8) Poor prognosis Status: Acute (9) History of CVA with residual deficit Status: Chronic (10) Cognitive impairment Status: Chronic (11) Hyperkaluria Status: Acute (12) Hypokalemia Status: Acute (13) Hypernatremia Status: Acute (14) History of pulmonary embolism Status: Chronic KACIE SHEN MD Nov 29, 2020 16:13
[2020-11-29] MEDS: morphine (ROXINOL) 10 MG/0.5 ML oral conc 0.5 ML PO PRN ×2 (16:35→22:18)
[2020-11-30] MEDS: morphine (ROXINOL) 10 MG/0.5 ML oral conc 0.5 ML PO PRN ×2 (05:10→23:34)
--- NOTE | 2020-11-30 08:41 | Speech Therapy Progress Note ---
Therapy Progress Note ST attempted to complete Bedside Dysphagia Evaluation again this am. When I entered her room her Dysphagia I breakfast tray was at her bedside. Patient was offered 1/2 tsp of water and 1/2 tsp of applesauce to which she turned her head and adamantly refused. Patient was noted to be calmer and quieter this morning. COOKIE OWUSU Nov 30, 2020 08:41
--- NOTE | 2020-11-30 12:03 | Progress Note - Hospitalist ---
Subjective HPI/CC On Admission Date Seen by Provider: Nov 30, 2020 Time Seen by Provider: 09:50 Yudelka Conde is a 80 year old female with PMH CVA with residual deficits, minimally communicative, history of PE on anticoagulation, who [facility] with [facility]y from [facility]. She is unable to provide any history. There is no family at the bedside. She was found to be in severe sepsis with a urinary tract infection. Her blood cultures turned positive this morning. She has a history of ESBL UTI. Subjective/Events-last exam She is nonverbal. She opens her eyes but does not cooperate. There is no family at the bedside. Focused Exam Lactate Level 11/27/20 19:27: Lactic Acid Level 1.83 Objective Exam Vital Signs Vital Signs Date Time Temp Pulse Resp B/P (MAP) Pulse Ox O2 Delivery O2 Flow Rate FiO2 11/29/20 15:52 36.6 11/29/20 12:49 106 11/29/20 12:00 14 145/98 (114) 100 Room Air Capillary Refill : Less Than 3 Seconds General Appearance: No Apparent Distress, Chronically ill Respiratory: Lungs Clear, Normal Breath Sounds, No Respiratory Distress Cardiovascular: Regular Rate, Rhythm, No Murmur Gastrointestinal: Normal Bowel Sounds, Soft Extremity: Normal Inspection, Pedal Edema Neurologic/Psychiatric: Alert, Aphasia Skin: Normal Color, Warm/Dry Results/Procedures Lab Patient resulted labs reviewed. Imaging: Reviewed Imaging Report Assessment/Plan Assessment and Plan Assess & Plan/Chief Complaint Severe sepsis due to UTI Chronic delgado catheter associated UTI Gram negative desirae bacteremia Acute kidney injury Hyperkalemia Hypernatremia Hypophophatemia Hypomagnesemia History of CVA with residual deficits Cognitive impairment History of PE Poor prognosis Comfort measures only status Due to patient agitation and discomfort with poor prognosis, decision made to transition to comfort measures only Palliative care consulted, appreciate assistance Will likely need discharge back to facility on hospice Diagnosis/Problems Diagnosis/Problems (1) Comfort measures only status Status: Acute (2) Severe sepsis with acute organ dysfunction Status: Acute (3) UTI (urinary tract infection) Status: Acute (4) NEERAJ (acute kidney injury) Status: Acute (5) Urinary tract infection associated with indwelling urethral catheter Status: Acute Qualifiers: Encounter type: initial encounter Qualified Codes: T83.511A - Infection and inflammatory reaction due to indwelling urethral catheter, initial encounter; N39.0 - Urinary tract infection, site not specified (6) Gram-negative bacteremia Status: Acute (7) History of ESBL Klebsiella pneumoniae infection Status: Chronic (8) Poor prognosis Status: Acute (9) History of CVA with residual deficit Status: Chronic (10) Cognitive impairment Status: Chronic (11) Hyperkaluria Status: Acute (12) Hypokalemia Status: Acute (13) Hypernatremia Status: Acute (14) History of pulmonary embolism Status: Chronic KACIE SHEN MD Nov 30, 2020 12:03
[2020-12-01] MEDS: morphine (ROXINOL) 10 MG/0.5 ML oral conc 0.5 ML PO PRN ×3 (02:00→10:13)
== END 2020-12-01 15:15 | disposition hospice, inpatient (51) | DRG 698 ==
LOC: EDUNIT# 18:56 → ER 18:58 → ICU 20:50 → 4TH 11-29 17:39
PROVIDERS: ADMIT Internal Medicine; ATTEND Internal Medicine
DX: T83.511A Infection and inflammatory reaction due to indwelling urethral catheter, initial encounter (principal); A41.59 Other Gram-negative sepsis; R65.20 Severe sepsis without septic shock; N17.9 Acute kidney failure, unspecified; E87.0 Hyperosmolality and hypernatremia; Z16.12 Extended spectrum beta lactamase (ESBL) resistance; I69.351 Hemiplegia and hemiparesis following cerebral infarction affecting right dominant side; Z51.5 Encounter for palliative care; Z66 Do not resuscitate; N39.0 Urinary tract infection, site not specified; E87.5 Hyperkalemia; R41.89 Other symptoms and signs involving cognitive functions and awareness; E83.39 Other disorders of phosphorus metabolism; E83.42 Hypomagnesemia; E11.65 Type 2 diabetes mellitus with hyperglycemia; E78.00 Pure hypercholesterolemia, unspecified; E78.5 Hyperlipidemia, unspecified; I10 Essential (primary) hypertension; K21.9 Gastro-esophageal reflux disease without esophagitis; F32.9 Major depressive disorder, single episode, unspecified; E86.1 Hypovolemia; E66.9 Obesity, unspecified; Z68.30 Body mass index [BMI] 30.0-30.9, adult; I25.2 Old myocardial infarction; Z86.711 Personal history of pulmonary embolism; Z79.01 Long term (current) use of anticoagulants; Z79.4 Long term (current) use of insulin
CPT/HCPCS: 36415; 70450; 71045; 80048; 80053; 81000; 82947; 83605; 83735; 83883; 84100; 84155; 84165; 85007; 85025; 85027; 85610; 85730; 87040; 87077; 87081; 87088; 87184; 87186; 93005